=== PATIENT | male | born 1935 | race Caucasian/White ===

== ENCOUNTER 2016-12-23 09:54 | Outpatient (CLI) | payer MEDICARE, OTHER ==
[2016-12-23 12:29] LABS: #Basophils 0.1 thou/uL (0.0-0.2); #Eosinphils 0.1 thou/uL (0.0-0.7); #Lymphocytes 1.6 thou/uL (1.20-3.40); #Monocytes 0.7 thou/uL (0.11-0.59); %Lymphocytes 24.3 % (21.0-51.0); %Monocytes 11.2 % (0.0-10.0); %Neutrophils 61.5 % (42.0-75.0); Hemoglobin 13.9 g/dL (14.0-18.0); Mean Corpuscular HGB CONC 32.4 g/dL (32.0-36.0); Mean Corpuscular Hemoglobin 29.2 pg (27.0-31.0); Mean Corpuscular Volume 90.2 fl (80.0-94.0); Mean Platelet Volume 9.1 fL (7.4-10.4); Platelet Count 209 thou/uL (130-400); RBC Distribution Width 13.8 % (11.5-14.5); Red Blood Cell (RBC) Count 4.74 mill/uL (4.70-6.10); White Blood Cell (WBC) Count 6.4 thou/uL (4.8-10.8)
[2016-12-23 12:52] LABS: ALT (SGPT) 11 U/L (8-55); AST (SGOT) 15 U/L (5-34); Albumin 4.1 g/dL (3.4-4.8); Alkaline Phosphatase 69 U/L (40-150); Anion Gap 16 mmol/L (10-20); BUN (Urea Nitrogen) 14 mg/dL (8.4-25.7); Bilirubin, Direct 0.2 mg/dL (0.1-0.3); Bilirubin, Total 0.4 mg/dL (0.2-1.2); Calc. Creatinine Clearance 0 mL/min (70-130); Calcium 9.2 mg/dL (7.8-10.44); Carbon Dioxide 28 mmol/L (23-31); Cardiac Risk 2.4 (Less than 4.5); Chloride 100 mmol/L (98-107); Cholesterol 168 mg/dl (< 200 Desired); Estimated GFR-MDRD 70; Glucose 86 mg/dL (83-110); HDL Cholesterol 69 mg/dL (>60 Neg Risk); LDL Cholesterol, Calculated 91 mg/dL; Potassium 4.4 mmol/L (3.5-5.1); Protein, Total 6.5 g/dL (5.8-8.1); Sodium 140 mmol/L (136-145); Triglycerides 39 mg/dL (Less than 150)
[2016-12-23 12:58] LABS: Hemoglobin A1c 5.6 % (4.0-6.0)
== END 2016-12-23 09:55 | disposition home or self-care (01) ==
LOC: NAVSJIPCSP 09:54
PROVIDERS: ATTEND Nurse Practitioner Family
DX: E78.5 Hyperlipidemia, unspecified (principal); I15.9 Secondary hypertension, unspecified; G20 Parkinson's disease; M19.90 Unspecified osteoarthritis, unspecified site; R60.0 Localized edema; Z79.899 Other long term (current) drug therapy
CPT/HCPCS: 36415; 80048; 80061; 80076; 83036; 84443; 85025

== ENCOUNTER 2018-07-24 14:41 | Emergency (ER) | payer MEDICARE, OTHER ==
[2018-07-24 14:58] LABS: #Basophils 0.1 thou/uL (0.0-0.2); #Eosinphils 0.1 thou/uL (0.0-0.7); #Lymphocytes 1.5 thou/uL (1.20-3.40); #Monocytes 0.9 thou/uL (0.11-0.59); %Basophils 0.6 % (0.0-1.0); %Eosinophils 0.9 % (0.0-10.0); %Lymphocytes 17.2 % (21.0-51.0); %Neutrophils 70.3 % (42.0-75.0); Hemoglobin 11.6 g/dL (14.0-18.0); Mean Corpuscular Hemoglobin 30.2 pg (27.0-31.0); Mean Corpuscular Volume 97.4 fL (78.0-98.0); Mean Platelet Volume 8.9 fL (7.4-10.4); Platelet Count 239 thou/uL (130-400); RBC Distribution Width 12.3 % (11.5-14.5); Red Blood Cell (RBC) Count 3.84 mill/uL (4.70-6.10); White Blood Cell (WBC) Count 8.6 thou/uL (4.8-10.8)
[2018-07-24 15:15] LABS: ALT (SGPT) Less than 6 U/L (8-55); AST (SGOT) 13 U/L (5-34); Albumin 4.3 g/dL (3.4-4.8); Alkaline Phosphatase 60 U/L (40-150); Anion Gap 16 mmol/L (10-20); BUN (Urea Nitrogen) 36 mg/dL (8.4-25.7); Bilirubin, Total 0.5 mg/dL (0.2-1.2); Calc. Creatinine Clearance 0 mL/min (70-130); Calcium 9.6 mg/dL (7.8-10.44); Carbon Dioxide 26 mmol/L (23-31); Chloride 102 mmol/L (98-107); Estimated GFR-MDRD 50; Globulin 2.7 g/dL (2.4-3.5); Glucose 96 mg/dL (83-110); Sodium 140 mmol/L (136-145)
[2018-07-24 15:19] LABS: PTT 29.4 SEC (22.9-36.1); Prothrombin Time 13.2 SEC (12.0-14.7)
--- NOTE | 2018-07-24 15:39 | CT ---
CT OF BRAIN PERFORMED WITHOUT CONTRAST ENHANCEMENT: 07/24/18 HISTORY: Altered mental status. Confusion for the last few hours. There is generalized ventricular and sulcal prominence. There is no signs of intracerebral hemorrhage or extra-axial fluid collections. Mastoid air cells and visualized sinuses are clear. IMPRESSION: 1. No acute intracranial abnormalities. 2. Findings telephoned to Dr. Willis at 1 503 hours. POS: [facility]
[2018-07-24 15:44] LABS: CK (CPK) 86 U/L (30-200); Lipase 15 U/L (8-78)
[2018-07-24 15:56] LABS: Bilirubin Negative (Negative); Blood, Urine Negative (Negative); Clarity Clear (Clear); Glucose, Urine (Dipstick) Negative (Negative); Leukocyte Negative (Negative); Nitrite Negative (Negative); Protein, Urine (Dipstick) Negative (Neg-Trace); Urobilinogen 0.2 mg/dL (0.2-1.0); pH, Urine 6.5 (5.0-9.0)
--- NOTE | 2018-07-24 16:50 | RAD ---
CHEST ONE VIEW 07/24/18 HISTORY: Stroke alert. Altered mental status. COMPARISON: None. FINDINGS: The lungs are clear. No pneumothorax or effusion. There is a round density within the medial mediast inum likely a large sliding hiatal hernia. Left shoulder reverse arthroplasty is in place in good position. IMPRESSION: Cardiomegaly and large sliding hiatal hernia. POS: [facility]
== END 2018-07-24 17:50 | disposition short-term general hospital (02) ==
LOC: NAV ERS 14:41
DX: R41.82 Altered mental status, unspecified (principal); I10 Essential (primary) hypertension; E78.5 Hyperlipidemia, unspecified; G20 Parkinson's disease; Z87.891 Personal history of nicotine dependence; Z79.899 Other long term (current) drug therapy
CPT/HCPCS: 36416; 70450; 71045; 80053; 81003; 82140; 82550; 83690; 84443; 84484; 85025; 85610; 85730; 93005

== ENCOUNTER 2018-12-28 08:21 | Emergency (ER) | payer MEDICARE, OTHER ==
[2018-12-28] MEDS ORDERED: Acetaminophen 500 MG TAB ONE (09:16)
[2018-12-28 09:25] LABS: #Basophils 0.1 thou/uL (0.0-0.2); #Eosinphils 0.1 thou/uL (0.0-0.7); #Lymphocytes 1.1 thou/uL (1.20-3.40); #Monocytes 1.3 thou/uL (0.11-0.59); #Neutrophils 9.7 thou/uL (1.40-6.50); %Basophils 0.4 % (0.0-1.0); %Eosinophils 0.5 % (0.0-10.0); %Lymphocytes 9.3 % (21.0-51.0); %Neutrophils 78.8 % (42.0-75.0); Hemoglobin 7.3 g/dL (14.0-18.0); Mean Corpuscular HGB CONC 27.9 g/dL (32.0-36.0); Mean Corpuscular Hemoglobin 20.2 pg (27.0-31.0); Mean Corpuscular Volume 72.3 fL (78.0-98.0); Mean Platelet Volume 7.6 fL (7.4-10.4); Platelet Count 364 thou/uL (130-400); Red Blood Cell (RBC) Count 3.62 mill/uL (4.70-6.10); White Blood Cell (WBC) Count 12.3 thou/uL (4.8-10.8)
[2018-12-28 09:38] LABS: Basophilic Stippling SLIGHT = 1-2 cells (100X) (None Seen); Helmet Cells SLIGHT = 2-5 cells (100X) (0-1/hpf); Hypochromia SLIGHT = 6-15 cells (100X) (0-5/hpf); MDiff Complete? YES; Microcytosis MODERATE=15-30 cells (100X) (0-5/hpf); Platelet Morphology Comment Appears Adequate; Poikilocytosis MODERATE=16-30 cells (100X) (0-5/hpf)
[2018-12-28 09:41] LABS: ALT (SGPT) 7 U/L (8-55); AST (SGOT) 23 U/L (5-34); Alkaline Phosphatase 71 U/L (40-150); Anion Gap 16 mmol/L (10-20); BUN (Urea Nitrogen) 13 mg/dL (8.4-25.7); Bilirubin, Total 0.5 mg/dL (0.2-1.2); CK (CPK) 233 U/L (30-200); Calc. Creatinine Clearance 0 mL/min (70-130); Calcium 9.4 mg/dL (7.8-10.44); Carbon Dioxide 27 mmol/L (23-31); Chloride 103 mmol/L (98-107); Estimated GFR-MDRD 71; Globulin 2.9 g/dL (2.4-3.5); Glucose 104 mg/dL (83-110); Lipase 10 U/L (8-78); Potassium 3.6 mmol/L (3.5-5.1); Protein, Total 6.9 g/dL (5.8-8.1); Sodium 142 mmol/L (136-145)
[2018-12-28 09:56] LABS: Bilirubin Negative (Negative); Blood, Urine Trace (Negative); Clarity Clear (Clear); Glucose, Urine (Dipstick) Negative (Negative); Leukocyte Negative (Negative); Nitrite Negative (Negative); Protein, Urine (Dipstick) Trace mg/dL (Neg-Trace)
[2018-12-28 10:07] LABS: RBC/HPF 0-3 HPF (0-3); WBC/HPF None Seen HPF (0-3)
[2018-12-28 10:08] LABS: Bacteria/HPF None Seen HPF (None Seen); Hyaline Casts/LPF 0-3 HYALINE CAST LPF (0-3 Hyaline); Squamous Epithelial 0-3 HPF (0-3)
[2018-12-28] MEDS ORDERED: cefTRIAXone\\ROCEPHIN 1 GM VIAL ONE (10:18)
[2018-12-28] MEDS ORDERED: Levofloxacin 500 mg/D5W 100 ml Premix Bag ONE (10:19)
--- NOTE | 2018-12-28 10:19 | CT ---
Exam: Head CT without contrast HISTORY: Fall. Pain. Generalized weakness. COMPARISON: 07/24/2018 FINDINGS: Hemorrhage: No intraparenchymal hemorrhage or extra-axial hematoma. Brain parenchyma: Cortical hanks-white matter differentiation is preserved. No mass effect or midline shift. Basilar cisterns are patent. Ventricular system: Ventricles and sulci are patent and symmetric. Calvarium: Intact. Sinuses and mastoid air cells: Adequate aeration. IMPRESSION: No acute intracranial process. No intracranial post traumatic sequelae.
--- NOTE | 2018-12-28 10:48 | CT ---
EXAM: CT scan cervical spine without contrast: HISTORY: Injury from a fall COMPARISON: None FINDINGS: No evidence for acute fracture or facet dislocation. There is evidence for a somewhat teardrop oblong left-sided esophageal diverticulum measuring approxi mately 0.8 x 2.3 cm, filled with air. No prevertebral soft tissue swelling. Extensive cervical spondylosis. Approximately 0.4 cm anterolisthesis of C7 on T1. This does not appea r significantly changed from a prior 07/25/2018 CTA NECK. IMPRESSION: No evidence for acute fracture or facet dislocation or other significant acute process. Stable anterolisthesis of C7 on T1. Left-sided esophageal diverticulum filled with air.
[2018-12-28] MEDS ORDERED: Sodium Chloride 0.9% 500 ML ONE (10:56)
--- NOTE | 2018-12-28 11:42 | CT ---
CT OF CHEST AND ABDOMEN AND PELVIS AND THORACIC AND LUMBAR SPINE PERFORMED WITH COTNRAST ENHANCEMENT: HISTORY: Diffuse pain and generalized weakness since patient fell on Friday. FINDINGS: The lungs are clear of any infiltrative process. Tiny effusions are present and there is subsegmenta l atelectatic change seen. There are no rib fractures seen. The thoracic aorta is normal in caliber. There is a large hiatal h ernia seen. No mediastinal or hilar adenopathy. Postoperative changes of the left shoulder are pres ent. CT OF ABDOMEN PERFORMED WITH INTRAVENOUS CONTRAST ENHANCEMENT: The liver, spleen, pancreas, and gallbladder regions appear unremarkable. Right and left adrenal glands and right and left kidneys are normal in size. No free fluid or signs for bowel wall injury. CT OF PELVIS PERFORMED WITH CONTRAST ENHANCEMENT: The prostate is rather markedly enlarged. No pelvic lymphadenopathy is seen. A fat-containing parau mbilical hernia is present. The appendix is unremarkable. Pelvic ring appears intact without signs of fracture. CT OF THORACIC SPINE: No acute injury. CT OF LUMBAR SPINE: No acute findings. IMPRESSION: 1. No acute findings of the chest, abdomen, or pelvis. 2. Large hiatal hernia incidentally seen. POS: [facility]
--- NOTE | 2018-12-28 11:51 | RAD ---
CHEST 1 VIEW: INDICATION: History of fever. COMPARISON: Prior exam dated 07/24/2018. FINDINGS: Heart size remains mildly enlarged. No pleural effusion or pneumothorax is evident. There is stable left total shoulder replacement. There is a moderate hiatal hernia which is stable. Chronic osseou s changes are stable. IMPRESSION: Stable cardiomegaly and hiatal hernia. POS: [facility]
--- NOTE | 2018-12-28 12:20 | RAD ---
RIGHT KNEE 2 VIEWS: Date: 12/28/18 INDICATION: History of fall with right knee pain. COMPARISON: None. FINDINGS: There is severe osteoarthrosis of the right knee. There is moderate to severe joint capsular distenti on. No definite acute fracture is evident. Small interarticular body is suspected within the suprapat ellar pouch measuring 9.7 mm. Additional suspected interarticular body is seen within the region of H offa's fat pad measuring 1.7 cm. There is soft tissue swelling surrounding the right knee. IMPRESSION: 1. Severe osteoarthrosis of the right knee with interarticular bodies. 2. Prominent joint capsular distention. 3. Soft tissue swelling surrounding the right knee. POS: [facility]
== END 2018-12-28 12:40 | disposition short-term general hospital (02) ==
LOC: NAV ERS 08:21
DX: D64.9 Anemia, unspecified (principal); I10 Essential (primary) hypertension; G20 Parkinson's disease; E78.5 Hyperlipidemia, unspecified; Z87.891 Personal history of nicotine dependence; Z79.899 Other long term (current) drug therapy; Z79.82 Long term (current) use of aspirin
CPT/HCPCS: 36430; 51701; 70450; 71045; 71260; 72125; 73560; 74177; 80053; 82274; 82550; 83605; 83690; 84484; 85025; 86850; 86900; 86901; 86920; 87040; 87086; 87149 ×2; 93005; 96365; 96376; 99285; P9016; 36415; 81003; 81015; J0696; J1956; J7050

== ENCOUNTER 2019-01-02 18:10 | Inpatient (IN) | payer MEDICARE, OTHER ==
[2019-01-02] MEDS: cloNIDine 0.1 MG TAB PO PRN (19:10)
[2019-01-02] MEDS ORDERED: traMADol HCl 50 MG TAB PO PRN (19:59)
[2019-01-02] MEDS ORDERED: TYLENOL 650 MG PO PRN (20:02)
[2019-01-02] MEDS ORDERED: Polyethylene Glycol 3350 17 GM Packet PO PRN (20:07)
[2019-01-02] MEDS: clonazePAM 0.5 MG TAB PO SCH (21:20)
[2019-01-02] MEDS: HYDROcodone/Acetaminophen 7.5/325 mg Tablet PO PRN (21:21)
[2019-01-02] MEDS: metroNIDAZOLE 500 MG TAB PO SCH (21:23)
[2019-01-02] MEDS: Atorvastatin Calcium 40 MG TAB PO SCH (21:23)
[2019-01-02] MEDS: Cefdinir 300 MG CAP PO SCH (21:23)
[2019-01-02] MEDS: Pramipexole Di-HCl 0.25 MG TAB PO SCH (21:24)
[2019-01-02] MEDS: Carbidopa/Levodopa CR 50-200 mg Tablet PO SCH (21:24)
[2019-01-03 05:26] LABS: #Eosinphils 0.3 thou/uL (0.0-0.7); #Lymphocytes 1.1 thou/uL (1.20-3.40); #Monocytes 0.9 thou/uL (0.11-0.59); #Neutrophils 8.1 thou/uL (1.40-6.50); %Basophils 0.4 % (0.0-1.0); %Eosinophils 2.4 % (0.0-10.0); %Lymphocytes 10.9 % (21.0-51.0); %Monocytes 8.8 % (0.0-10.0); %Neutrophils 77.5 % (42.0-75.0); Hemoglobin 8.4 g/dL (14.0-18.0); Hypochromia MODERATE=16-30 cells (100X) (0-5/hpf); MDiff Complete? YES; Mean Corpuscular HGB CONC 29.1 g/dL (32.0-36.0); Mean Corpuscular Hemoglobin 21.5 pg (27.0-31.0); Mean Corpuscular Volume 74.1 fL (78.0-98.0); Mean Platelet Volume 7.4 fL (7.4-10.4); Microcytosis MODERATE=15-30 cells (100X) (0-5/hpf); Platelet Count 398 thou/uL (130-400); Platelet Morphology Comment Appears Adequate; RBC Distribution Width 20.6 % (11.5-14.5); Red Blood Cell (RBC) Count 3.88 mill/uL (4.70-6.10); Target Cells SLIGHT = 2-5 cells (100X) (0-1/hpf); White Blood Cell (WBC) Count 10.4 thou/uL (4.8-10.8)
[2019-01-03 05:31] LABS: Anion Gap 13 mmol/L (10-20); BUN (Urea Nitrogen) 13 mg/dL (8.4-25.7); Calc. Creatinine Clearance 79 mL/min (70-130); Calcium 8.7 mg/dL (7.8-10.44); Carbon Dioxide 31 mmol/L (23-31); Chloride 99 mmol/L (98-107); Estimated GFR-MDRD Greater than 90; Glucose 113 mg/dL (83-110); Potassium 3.8 mmol/L (3.5-5.1); Sodium 139 mmol/L (136-145)
[2019-01-03] MEDS: cloNIDine 0.1 MG TAB PO PRN (07:14)
[2019-01-03] MEDS: Ferrous Sulfate 325 MG TAB PO SCH (07:15)
[2019-01-03] MEDS: Carbidopa/Levodopa CR 50-200 mg Tablet PO SCH ×3 (08:56→21:26)
[2019-01-03] MEDS: Cefdinir 300 MG CAP PO SCH ×2 (08:56→21:20)
[2019-01-03] MEDS: Furosemide 40 MG TAB PO SCH (08:56)
[2019-01-03] MEDS: metroNIDAZOLE 500 MG TAB PO SCH ×3 (08:56→21:22)
[2019-01-03] MEDS: Finasteride 5 MG TAB PO SCH (08:56)
[2019-01-03] MEDS: Pramipexole Di-HCl 0.25 MG TAB PO SCH ×2 (08:57→21:24)
--- NOTE | 2019-01-03 14:48 | HP ---
CHIEF COMPLAINT: Possible aspiration pneumonitis and anemia, here for therapy. BRIEF HISTORY: This is a pleasant 83-year-old male, who is a patient of my partner, Dr. Chuy Seaman, who presented to the hospital in [place] with a fall and hemoglobin of 7.3. He required 2 units of blood. He underwent EGD, which did not show any active source of bleeding. He did have an episode of PACs and workup did show possible aspiration pneumonia, and he was started on IV metronidazole and cefepime. He was negative for any PE. He has been switched over to oral antibiotics and he was felt to be a candidate for rehabilitation, so transferred here. The patient is resting in bed and is groggy, but arousable. 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 He denies any chest pain or shortness of breath. PAST MEDICAL HISTORY: 1. Parkinson disease. 2. Restless legs syndrome. 3. Dyslipidemia. 4. Diastolic dysfunction. 5. Hypertension. 6. Anemia, requiring blood transfusion. 7. Osteoarthritis. PAST SURGICAL HISTORY: 1. Left shoulder surgery. 2. Cataract extraction. 3. Throat surgery. FAMILY HISTORY: Noncontributory. PSYCHOSOCIAL HISTORY: Denies any tobacco abuse. He drinks a couple of beers daily. Denies any recreational drug use. He was ambulating with the help of a walker. ALLERGIES: NO KNOWN DRUG ALLERGIES. MEDICATIONS: He has been transferred here on the following medications; 1. [place] 7.5 one tablet q.6 hours p.r.n. 2. DuoNeb q.6 hours p.r.n. 3. Lipitor 40 mg daily. 4. Sinemet CR 50/200 one tablet b.i.d. 5. Omnicef 300 mg b.i.d. 6. Klonopin 1.5 mg daily at bedtime. 7. Iron sulfate 325 daily. 8. Proscar 5 mg daily. 9. Lasix 40 mg daily. 10. Flagyl 500 mg t.i.d. 11. Protonix 40 mg daily. 12. Mirapex 0.5 mg b.i.d. 13. Omnicef 300 mg b.i.d. REVIEW OF SYSTEMS: CARDIOVASCULAR SYSTEM: Denies any chest pain, shortness of breath, palpitations, PND, orthopnea, or pedal edema. RESPIRATORY SYSTEM: Occasional cough. Denies any pleuritic type chest pain. Denies any hemoptysis. GASTROINTESTINAL SYSTEM: Denies any nausea, vomiting, diarrhea, constipation, hematemesis, melena, or hematochezia. GENITOURINARY SYSTEM: Denies any frequency, urgency, dysuria, or hematuria. CENTRAL NERVOUS SYSTEM: Generalized weakness. Denies any focal numbness or weakness. He did have a fall prior to admission. No fainting spells. HEENT: He is slightly hard of hearing. Denies any difficulty with swallowing. Vision, denies any change in vision. SKIN: Denies any rash. PHYSICAL EXAMINATION: GENERAL: This is a pleasant 83-year-old male, who is resting comfortably in bed and denies any concerns. His family is with him. He is awake and responsive. VITAL SIGNS: He is afebrile, heart rate 72, respirations 21, oxygen saturation 97%. Blood pressure after getting his medications was 121/66, before it was 191/87. HEENT: Normocephalic and atraumatic. Pupils are equally reactive to light and accommodation. NECK: No JVD, thyromegaly, cervical lymphadenopathy, throat exudates, or carotid bruits. CARDIOVASCULAR SYSTEM: S1 and S2 plus. Rate and rhythm regular. RESPIRATORY SYSTEM: Normal vesicular breath sounds with decreased air entry at the bases. Occasional rhonchi. ABDOMEN: Soft and nontender. Bowel sounds heard in all quadrants. EXTREMITIES: Without cyanosis or clubbing. Trace edema. Peripheral pulses are palpable. CENTRAL NERVOUS SYSTEM: Awake and responsive. Cranial nerves 2 through 12 grossly intact. Generalized weakness. LABORATORY DATA: Laboratory values done this morning shows a white count of 10.4, H and H of 8.4 and 28.7 with microcytosis. Sodium 139, potassium 3.8, BUN and creatinine are 13 and 0.81, blood sugar is 113. IMPRESSION: 1. Resolving aspiration pneumonia. 2. Anemia, much improved post blood transfusion with negative esophagogastroduodenoscopy. 3. Parkinson disease. 4. Hypertension. 5. Dyslipidemia. 6. Restless legs syndrome. 7. Deconditioning. PLAN: 1. Continue current medications. 2. Heart healthy diet. 3. Iron sulfate. 4. Monitor for any signs of bleeding. 5. Monitor respiratory status. 6. DVT prophylaxis with PlexiPulses. 7. Decubitus precautions. 8. Stress ulcer prophylaxis. 9. Routine laboratory values. 10. Dr. Chuy Seaman will assume care at 9 p.m. [facility]. Discussed with the patient and family in detail. All questions answered. Job ID: [id number]
[2019-01-03] MEDS: Atorvastatin Calcium 40 MG TAB PO SCH (21:20)
[2019-01-03] MEDS: clonazePAM 0.5 MG TAB PO SCH (21:22)
[2019-01-03] MEDS: HYDROcodone/Acetaminophen 7.5/325 mg Tablet PO PRN (21:26)
[2019-01-04] MEDS: Cefdinir 300 MG CAP PO SCH ×2 (08:59→21:09)
[2019-01-04] MEDS: Furosemide 40 MG TAB PO SCH (09:00)
[2019-01-04] MEDS: Ferrous Sulfate 325 MG TAB PO SCH (09:00)
[2019-01-04] MEDS: Finasteride 5 MG TAB PO SCH (09:01)
[2019-01-04] MEDS: Carbidopa/Levodopa CR 50-200 mg Tablet PO SCH ×2 (09:01→21:12)
[2019-01-04] MEDS: metroNIDAZOLE 500 MG TAB PO SCH ×3 (09:01→21:10)
[2019-01-04] MEDS: Pramipexole Di-HCl 0.25 MG TAB PO SCH ×2 (09:02→21:11)
--- NOTE | 2019-01-04 10:20 | PRG ---
DATE OF SERVICE: 01/04/2019 Mr. Tubbs is a very pleasant 83-year-old white male, who presented to the emergency room at [place] very anemic with a hemoglobin of 7.3. He was given 2 units of packed red blood cells. He was seen by GI and had an EGD done which did not show any active bleeding. He was also noted to have a high white count and had possible aspiration pneumonia, was started on IV metronidazole and cefepime. Negative for pulmonary embolism. Switched over to oral antibiotics and was so weak that they felt that they would transfer him to [facility], so that he can get some physical therapy and occupational therapy to increase his strength and stamina and make him more independent. SUBJECTIVE: The patient states he is doing well today and has no concerns or complaints. Physical Therapy has seen him and he states he did stand up and walk a few feet this morning. He does complain of some right thigh pain that seems like it is more musculoskeletal. States that has been going off and on for the last month. He does not have any trauma to that area. OBJECTIVE: VITAL SIGNS: Today reveal blood pressure 180/82 and last night was 158/75, and yesterday morning 121/66. Pulse 66 to 70, respirations 18 to 20, O2 saturation 96% to 97% on room air, T-max 97.6. GENERAL: This is a well-developed, well-nourished, slightly obese white male, in no apparent distress at this time. HEENT: Reveals normocephalic and nontraumatic cranium. Pupils are equal, round, and reactive. Extraocular movements are intact. Nose and throat are slightly dry, but clear. NECK: Supple without masses, nodes, or bruits. CHEST: Clear to auscultation. No rales, no rhonchi, no wheezes are heard. Breath sounds are distant. The patient is not coughing this morning. HEART: Reveals a regular rate and rhythm without murmurs, gallops, or rubs. ABDOMEN: Soft and nontender without organomegaly. Normal bowel sounds are heard in all 4 quadrants. GENITOURINARY: Deferred. EXTREMITIES: Reveal no clubbing or cyanosis, with trace edema. PSYCHIATRIC: The patient is alert and oriented to person and place, but not the time. MUSCULOSKELETAL: Musculoskeletal crook, he has generalized weakness. IMPRESSION: 1. Resolving aspiration pneumonia. 2. Anemia post transfusion x2. 3. Negative EGD. 4. Parkinson disease. 5. Hypertension. 6. Hyperlipidemia. 7. Restless legs syndrome. 8. Deconditioning with generalized weakness. PLAN: 1. Continue present medications. 2. Continue to monitor the patient's anemia for signs of bleeding. 3. Monitor the patient's respiratory status. 4. DVT prophylaxis with plexi-pulses. 5. Decubitus precautions. 6. Stress ulcer prophylaxis. 7. Continue to monitor the patient's lab values. 8. Physical therapy and occupational therapy. Job ID: [id number]
[2019-01-04] MEDS: HYDROcodone/Acetaminophen 7.5/325 mg Tablet PO PRN (14:40)
[2019-01-04] MEDS: clonazePAM 0.5 MG TAB PO SCH (21:10)
[2019-01-04] MEDS: Atorvastatin Calcium 40 MG TAB PO SCH (21:12)
[2019-01-05] MEDS: Cefdinir 300 MG CAP PO SCH ×2 (08:55→21:29)
[2019-01-05] MEDS: Carbidopa/Levodopa CR 50-200 mg Tablet PO SCH ×2 (08:55→21:28)
[2019-01-05] MEDS: Ferrous Sulfate 325 MG TAB PO SCH (08:55)
[2019-01-05] MEDS: Furosemide 40 MG TAB PO SCH (08:56)
[2019-01-05] MEDS: metroNIDAZOLE 500 MG TAB PO SCH ×3 (08:56→21:29)
[2019-01-05] MEDS: Pramipexole Di-HCl 0.25 MG TAB PO SCH ×2 (08:56→21:27)
[2019-01-05] MEDS: Finasteride 5 MG TAB PO SCH (08:56)
[2019-01-05] MEDS: HYDROcodone/Acetaminophen 7.5/325 mg Tablet PO PRN (15:40)
--- NOTE | 2019-01-05 19:29 | PRG ---
DATE OF SERVICE: 01/05/2019 SUBJECTIVE: Mr. Tubbs is an 83-year-old white male, who presented to the emergency room with anemia. His hemoglobin was found to be 7.3. He had to be given 2 units of packed red blood cells. He was seen by a GI doctor, EGD was done, did not show any active bleeding. It is also noted to have a leukocytosis, thought to have a possible aspiration pneumonia. He was started on IV metronidazole and cefepime. His scan was negative for pulmonary embolus. He was switched over to oral antibiotics and then transferred to [facility] to get some Physical Therapy, Occupational Therapy to increase his strength and stamina. SUBJECTIVE: The patient states he is doing well, but he is worried about his knees because they hurt a lot when he stands up and walks. He is asking whether he can have knee surgery done, but he states that someone in the past told him that he was too sick for knee surgery. He thinks that he has seen Dr. Devang Acuña in the past. OBJECTIVE: VITAL SIGNS: Today reveal blood pressure 162/78, pulse 66 to 74, respirations 18 to 20, O2 saturation 95% to 98% on room air. T-max 98.0. GENERAL: This is a well-developed, well-nourished 83-year-old white male, in no apparent distress at this time. HEENT: Normocephalic and nontraumatic cranium. Pupils equal, round, and reactive. Extraocular movements are intact. Nose and throat are dry. KIM: Supple without masses, nodes, or bruits. CHEST: Clear. No rales, no rhonchi, no wheezes, and no cough is heard. Breath sounds are noted to be different. HEART: Reveals a regular rate and rhythm without murmurs, gallops, or rubs. ABDOMEN: slightly obese, soft, nontender without organomegaly. Normal bowel sounds are noted in all 4 quadrants. No rebound or guarding is noted. : Deferred. EXTREMITIES: Reveal no clubbing or cyanosis, with still some trace edema. The patient is alert and orient to person, place. MUSCULOSKELETAL: He has generalized weakness. Arthritis crook, he has pain in both of his knees. IMPRESSION: 1. Resolving aspiration pneumonia. 2. Anemia, status post transfusion x2 units. 3. Negative EGD. 4. Parkinson's. 5. Hypertension. 6. Hyperlipidemia. 7. Restless legs syndrome. 8. Generalized weakness with deconditioning. PLAN: 1. Continue present antibiotics. 2. Continue to monitor the patient's anemia for signs and symptoms of bleeding. 3. Monitor the patient's respiratory status. 4. DVT prophylaxis with PlexiPulse. 5. Decubitus precautions. 6. Stress ulcer prophylaxis. 7. Continue monitor the patient's lab values. 8. Physical therapy and occupational therapy. Job ID: [id number]
[2019-01-05] MEDS: clonazePAM 0.5 MG TAB PO SCH (21:27)
[2019-01-05] MEDS: Atorvastatin Calcium 40 MG TAB PO SCH (21:28)
[2019-01-06] MEDS: Cefdinir 300 MG CAP PO SCH (08:50)
[2019-01-06] MEDS: metroNIDAZOLE 500 MG TAB PO SCH ×3 (08:50→21:52)
[2019-01-06] MEDS: Carbidopa/Levodopa CR 50-200 mg Tablet PO SCH ×2 (08:50→21:53)
[2019-01-06] MEDS: Ferrous Sulfate 325 MG TAB PO SCH (08:50)
[2019-01-06] MEDS: Furosemide 40 MG TAB PO SCH (08:51)
[2019-01-06] MEDS: Finasteride 5 MG TAB PO SCH (08:51)
[2019-01-06] MEDS: Pramipexole Di-HCl 0.25 MG TAB PO SCH (08:52)
[2019-01-06] MEDS ORDERED: TYLENOL 650 MG PO PRN (11:56)
[2019-01-06] MEDS ORDERED: cloNIDine 0.1 MG TAB PO PRN (11:56)
--- NOTE | 2019-01-06 14:17 | PRG ---
DATE OF SERVICE: 01/06/2019 SUBJECTIVE: Mr. Tubbs is a very pleasant 83-year-old white male, who presented to emergency room with anemia. He was found to have a hemoglobin of 7.3. On the hospital, he was given 2 units of packed red blood cells and seen by Gastroenterology. EGD did not show any active bleeding. He was noted to have a leukocytosis and thought to have a possible aspiration pneumonia. Because of aspiration pneumonia, he was started on Flagyl and cefepime. Scan was negative for pulmonary embolism. He was switched over to oral antibiotics and transferred to [facility]. He is here mainly for inpatient physical therapy, occupational therapy, and increase his strength, stamina, and nutrition. The patient states he had a good day yesterday. 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 He is not worried about his knees because he knows he is going to see Dr. Guan on January 20. At that time, he will get steroids in both of his knees and a gel in one of his knees. Dr. Guan is his primary orthopedist at this time. OBJECTIVE: VITAL SIGNS: Reveal blood pressure 149/85, pulse 73 to 85, respirations 18 to 20, O2 saturation 96% on room air, T-max 97.9. GENERAL: This is a well-developed, well-nourished, very pleasant, slightly obese white male, in no apparent distress at this time. He is much more awake and alert today. HEENT: Reveals normocephalic and nontraumatic cranium. Pupils are equally round and reactive. Extraocular movements are intact. Nose and throat are moist today. NECK: Supple without masses, nodes, or bruits. CHEST: Clear to auscultation. No rales, rhonchi, wheezes, or cough are heard. Normal breath sounds are noted, but they are somewhat distant. HEART: Reveals a regular rate and rhythm. No murmurs, gallops, or rubs are noted. ABDOMEN: Soft, nontender without organomegaly. Normal bowel sounds are noted in all 4 quadrants. No rebound or guarding is noted. : Deferred. EXTREMITIES: Reveal no clubbing or cyanosis with continued trace edema in his ankles. NEUROLOGIC: The patient is oriented to person and place, but not time. MUSCULOSKELETAL: Musculoskeletal crook, the patient has generalized weakness. He has a lot of arthritis in both his knees. LABORATORY DATA: No labs were done. IMPRESSION: 1. Generalized weakness with deconditioning. 2. Anemia, status post transfusion x2 units. 3. Negative EGD. 4. Parkinson disease. 5. Hypertension. 6. Hyperlipidemia. 7. Restless legs syndrome. 8. Resolving aspiration pneumonia. PLAN: 1. Continue to monitor the patient for anemia. 2. Continue present Parkinson's medication. 3. Continue to monitor the patient's blood pressure closely and adjust medications as needed. 4. Continue restless leg medications. 5. Continue present medications. 6. DVT prophylaxis with PlexiPulse. 7. Decubitus precautions. 8. Stress ulcer prophylaxis. 9. Continue to monitor the patient's lab values. 10. Continue to monitor the patient's respiratory status. 11. Continue to monitor the patient for anemia. 12. Physical therapy and occupational therapy. Job ID: [id number]
[2019-01-06] MEDS ORDERED: clonazePAM 0.5 MG TAB PO SCH (21:00)
[2019-01-06] MEDS ORDERED: Cefdinir 300 MG CAP PO SCH (21:00)
[2019-01-06] MEDS ORDERED: Pramipexole Di-HCl 0.25 MG TAB PO SCH (21:00)
[2019-01-06] MEDS: Loratadine 10 MG TAB PO PRN (21:51)
[2019-01-06] MEDS: Atorvastatin Calcium 40 MG TAB PO SCH (21:52)
[2019-01-07 06:10] LABS: ALT (SGPT) Less than 6 U/L (8-55); AST (SGOT) 22 U/L (5-34); Albumin 3.3 g/dL (3.4-4.8); Alkaline Phosphatase 61 U/L (40-150); Anion Gap 13 mmol/L (10-20); BUN (Urea Nitrogen) 15 mg/dL (8.4-25.7); Bilirubin, Total 0.3 mg/dL (0.2-1.2); Calc. Creatinine Clearance 69 mL/min (70-130); Calcium 9.2 mg/dL (7.8-10.44); Carbon Dioxide 29 mmol/L (23-31); Chloride 100 mmol/L (98-107); Estimated GFR-MDRD 79; Globulin 2.9 g/dL (2.4-3.5); Glucose 96 mg/dL (83-110); Potassium 3.6 mmol/L (3.5-5.1); Protein, Total 6.2 g/dL (5.8-8.1); Sodium 138 mmol/L (136-145)
[2019-01-07 06:23] LABS: #Basophils 0.1 thou/uL (0.0-0.2); #Eosinphils 0.3 thou/uL (0.0-0.7); #Lymphocytes 2.4 thou/uL (1.20-3.40); #Monocytes 0.9 thou/uL (0.11-0.59); #Neutrophils 5.8 thou/uL (1.40-6.50); %Basophils 0.8 % (0.0-1.0); %Eosinophils 2.7 % (0.0-10.0); %Lymphocytes 25.2 % (21.0-51.0); %Monocytes 9.6 % (0.0-10.0); %Neutrophils 61.7 % (42.0-75.0); Hemoglobin 9.1 g/dL (14.0-18.0); Mean Corpuscular HGB CONC 28.7 g/dL (32.0-36.0); Mean Corpuscular Hemoglobin 21.2 pg (27.0-31.0); Mean Platelet Volume 6.5 fL (7.4-10.4); Platelet Count 527 thou/uL (130-400); RBC Distribution Width 21.6 % (11.5-14.5); Red Blood Cell (RBC) Count 4.26 mill/uL (4.70-6.10); White Blood Cell (WBC) Count 9.5 thou/uL (4.8-10.8)
[2019-01-07] MEDS ORDERED: Ferrous Sulfate 325 MG TAB PO SCH ×2 (08:00→08:30)
[2019-01-07] MEDS ORDERED: Finasteride 5 MG TAB PO SCH ×2 (08:30→09:00)
[2019-01-07] MEDS ORDERED: Furosemide 40 MG TAB PO SCH ×2 (08:30→09:00)
[2019-01-07] MEDS ORDERED: Pramipexole Di-HCl 0.25 MG TAB PO SCH (08:30)
[2019-01-07] MEDS ORDERED: Cefdinir 300 MG CAP PO SCH (08:30)
[2019-01-07] MEDS ORDERED: metroNIDAZOLE 500 MG TAB PO SCH (08:30)
[2019-01-07] MEDS: metroNIDAZOLE 500 MG TAB PO SCH ×3 (08:36→21:21)
[2019-01-07] MEDS: Ferrous Sulfate 325 MG TAB PO SCH (08:36)
[2019-01-07] MEDS: Cefdinir 300 MG CAP PO SCH ×2 (08:37→21:20)
[2019-01-07] MEDS: Finasteride 5 MG TAB PO SCH (08:37)
[2019-01-07] MEDS: Pramipexole Di-HCl 0.25 MG TAB PO SCH ×2 (08:37→21:20)
[2019-01-07] MEDS: Furosemide 40 MG TAB PO SCH (08:37)
[2019-01-07] MEDS: Carbidopa/Levodopa CR 50-200 mg Tablet PO SCH ×2 (08:38→21:21)
[2019-01-07] MEDS: HYDROcodone/Acetaminophen 7.5/325 mg Tablet PO PRN (10:05)
[2019-01-07] MEDS: clonazePAM 1 MG TAB PO SCH (21:21)
[2019-01-07] MEDS: Atorvastatin Calcium 40 MG TAB PO SCH (21:21)
[2019-01-08] MEDS: HYDROcodone/Acetaminophen 7.5/325 mg Tablet PO PRN (07:50)
[2019-01-08] MEDS: Ferrous Sulfate 325 MG TAB PO SCH (08:21)
[2019-01-08] MEDS: Cefdinir 300 MG CAP PO SCH ×2 (08:21→21:16)
[2019-01-08] MEDS: Pramipexole Di-HCl 0.25 MG TAB PO SCH ×2 (08:21→21:16)
[2019-01-08] MEDS: Carbidopa/Levodopa CR 50-200 mg Tablet PO SCH ×2 (08:22→21:16)
[2019-01-08] MEDS: metroNIDAZOLE 500 MG TAB PO SCH ×3 (08:22→21:17)
[2019-01-08] MEDS: Furosemide 40 MG TAB PO SCH (08:22)
[2019-01-08] MEDS: Finasteride 5 MG TAB PO SCH (08:23)
--- NOTE | 2019-01-08 13:00 | PRG ---
DATE OF SERVICE: 01/08/2019 SUBJECTIVE: Mr. Tubbs is a well-developed, well-nourished, very pleasant, 83-year-old white male, who presented to the emergency room with weakness. He was found to be extremely anemic with a hemoglobin of 7.3 and received 2 units of packed red blood cells. He was seen by GI and EGD did not show any active bleeding. Thought to have possible aspiration pneumonia because of leukocytosis. He was started on Flagyl and cefepime. Scan was negative for pulmonary embolus and he was switched over to oral antibiotics. Transferred to [facility], here for PT and OT and for to increase his nutrition. OBJECTIVE: VITAL SIGNS: Revealed blood pressure 168/73, pulse 74 to 83, respirations 18 to 20, O2 saturation 96% to 98%, and T-max 98.1. GENERAL: This is a well-developed, well-nourished, very pleasant, 83-year-old white male, in no apparent distress at this time. HEENT: Reveals normocephalic and nontraumatic cranium. Pupils are equal, round, and reactive. Extraocular movements are intact. Nose and throat are slightly dry, but clear. NECK: Supple without masses, nodes, or bruits. CHEST: Clear to auscultation, but the breath sounds are distant. No rales, rhonchi, wheezes, or cough is heard. HEART: Reveals a regular rate and rhythm without murmurs, gallops or rubs. ABDOMEN: Soft and nontender. The patient presently eaten a little bit of [place] food and has a fair appetite. Normal bowel sounds are heard in all 4 quadrants. No rebound or guarding is noted. : Deferred. EXTREMITIES: Revealed no clubbing or cyanosis with continued trace edema. NEUROLOGIC: The patient is oriented to person and place, but not time. MUSCULOSKELETAL: The patient is weak, but slowly getting better. He did walk 8 feet, then 60 feet, then 45 feet, then 45 feet. ASSESSMENT: 1. Anemia, status post transfusion x2 units, stable. 2. Negative esophagogastroduodenoscopy. 3. Parkinson disease. 4. Hypertension. 5. Hyperlipidemia. 6. Restless legs syndrome. 7. Resolving aspiration pneumonia. 8. Generalized weakness with deconditioning. PLAN: 1. Continue to monitor the patient's anemia. 2. Continue to monitor the patient's blood pressure closely, adjust medications as needed. 3. Continue restless legs medications. 4. Continue present Parkinson medications at present dose. 5. DVT prophylaxis with PlexiPulse. 6. Decubitus precautions. 7. Stress ulcer prophylaxis. 8. Continue to monitor the patient's labs. 9. Continue to monitor the patient's respiratory status. 10. Physical therapy and occupational therapy. Job ID: [id number]
[2019-01-08] MEDS: traMADol HCl 50 MG TAB PO PRN (16:16)
[2019-01-08] MEDS: Atorvastatin Calcium 40 MG TAB PO SCH (21:16)
[2019-01-08] MEDS: clonazePAM 1 MG TAB PO SCH (21:16)
[2019-01-09] MEDS: Ferrous Sulfate 325 MG TAB PO SCH (08:12)
[2019-01-09] MEDS: Pramipexole Di-HCl 0.25 MG TAB PO SCH ×2 (09:12→20:13)
[2019-01-09] MEDS: metroNIDAZOLE 500 MG TAB PO SCH ×3 (09:12→20:14)
[2019-01-09] MEDS: Furosemide 40 MG TAB PO SCH (09:12)
[2019-01-09] MEDS: Finasteride 5 MG TAB PO SCH (09:12)
[2019-01-09] MEDS: Carbidopa/Levodopa CR 50-200 mg Tablet PO SCH ×2 (09:12→20:14)
[2019-01-09] MEDS: Cefdinir 300 MG CAP PO SCH ×2 (09:13→20:10)
[2019-01-09] MEDS: HYDROcodone/Acetaminophen 7.5/325 mg Tablet PO PRN ×2 (09:15→20:14)
--- NOTE | 2019-01-09 09:55 | PRG ---
DATE OF SERVICE: 01/09/2019 SUBJECTIVE: The patient is a pleasant 83-year-old white male with a history of recent finding of severe anemia with unknown etiology with a negative EGD with only finding of possible aspiration pneumonia with no mention of colonoscopy. He has required transfusion and has been stable since that time and is also on IV cefepime and Flagyl for possible aspiration pneumonia and appears to be much stronger and has been switched to oral Omnicef and appears to be continuing to improve as well as oral Flagyl. He is eating well and is in no distress with no cough or shortness of breath. OBJECTIVE: LUNGS: With a few diffuse rhonchi. No rales or wheezes. CARDIAC: Showed regular rhythm. ABDOMEN: Soft and nontender. SKIN AND EXTREMITIES: Displayed no edema, clubbing, or cyanosis. NEUROLOGICAL: Shows mild cogwheel rigidity and some resting tremor. VITAL SIGNS: Temperature is 97.7, pulse 79, respirations 20, O2 sats 94% on room air, and blood pressure is 170/79. ASSESSMENT: 1. Resolving aspiration pneumonia, on oral antibiotics. 2. New onset of anemia of unknown etiology, status post transfusion, being monitored closely for recurrence and no evidence for recurrent bleeding. 3. Parkinson disease, stable. 4. Hypertension, controlled to goal. PLAN: 1. Continue PT/OT. 2. Continue to monitor CBC for recurrent anemia. 3. Continue to monitor for recurrent gastrointestinal bleed. 4. Continue stress ulcer prophylaxis. 5. Continue Parkinson medications. Job ID: [id number]
[2019-01-09] MEDS: clonazePAM 1 MG TAB PO SCH (20:10)
[2019-01-09] MEDS: Atorvastatin Calcium 40 MG TAB PO SCH (20:14)
[2019-01-10] MEDS: HYDROcodone/Acetaminophen 7.5/325 mg Tablet PO PRN ×2 (08:44→17:18)
[2019-01-10] MEDS: Cefdinir 300 MG CAP PO SCH ×2 (08:46→20:35)
[2019-01-10] MEDS: Furosemide 40 MG TAB PO SCH (08:46)
[2019-01-10] MEDS: Carbidopa/Levodopa CR 50-200 mg Tablet PO SCH ×2 (08:46→20:35)
[2019-01-10] MEDS: Finasteride 5 MG TAB PO SCH (08:46)
[2019-01-10] MEDS: metroNIDAZOLE 500 MG TAB PO SCH ×3 (08:47→20:35)
[2019-01-10] MEDS: Ferrous Sulfate 325 MG TAB PO SCH (08:47)
[2019-01-10] MEDS: Pramipexole Di-HCl 0.25 MG TAB PO SCH ×2 (08:47→20:35)
--- NOTE | 2019-01-10 20:08 | PRG ---
DATE OF SERVICE: 01/10/[address] López Lagos. SUBJECTIVE: The patient feels well, lying in bed, but has not had any therapy this week and has been resting, felt fairly stable. No shortness of breath. He has been tolerating his oral antibiotics for his aspiration pneumonia and is eating well. OBJECTIVE: VITAL SIGNS: Shows blood pressure 119/56, temperature is 97, pulse 73, respirations 20, and O2 sats 96% on room air. LUNGS: Clear. CARDIAC: Examination showed regular rhythm. ABDOMEN: Soft and nontender. SKIN/EXTREMITIES: Show no edema, clubbing, or cyanosis. NEUROLOGICAL: Intact. ASSESSMENT: 1. Resolving aspiration pneumonia on oral antibiotics. 2. Persistent anemia. No evidence of gastrointestinal bleeding. 3. Stable Parkinson's disease. 4. Hypertension, controlled to goal. PLAN: 1. Continue PT, OT. 2. Repeat CBC and basic metabolic profile in the a.m. 3. Continue stress ulcer prophylaxis. 4. Continue Parkinson's medicines. Job ID: [id number]
[2019-01-10] MEDS: clonazePAM 1 MG TAB PO SCH (20:35)
[2019-01-10] MEDS: Polyethylene Glycol 3350 17 GM Packet PO PRN (20:35)
[2019-01-10] MEDS: Atorvastatin Calcium 40 MG TAB PO SCH (20:35)
[2019-01-11] MEDS: HYDROcodone/Acetaminophen 7.5/325 mg Tablet PO PRN (05:14)
[2019-01-11 05:51] LABS: #Basophils 0.1 thou/uL (0.0-0.2); #Eosinphils 0.2 thou/uL (0.0-0.7); #Lymphocytes 1.8 thou/uL (1.20-3.40); #Monocytes 1.3 thou/uL (0.11-0.59); #Neutrophils 7.9 thou/uL (1.40-6.50); %Basophils 1.3 % (0.0-1.0); %Eosinophils 1.7 % (0.0-10.0); %Lymphocytes 15.6 % (21.0-51.0); %Monocytes 11.3 % (0.0-10.0); %Neutrophils 70.1 % (42.0-75.0); Hemoglobin 9.3 g/dL (14.0-18.0); Hypochromia MODERATE=16-30 cells (100X) (0-5/hpf); MDiff Complete? YES; Mean Corpuscular HGB CONC 28.6 g/dL (32.0-36.0); Mean Corpuscular Hemoglobin 21.4 pg (27.0-31.0); Mean Corpuscular Volume 74.8 fL (78.0-98.0); Mean Platelet Volume 7.3 fL (7.4-10.4); Microcytosis SLIGHT = 6-15 cells (100X) (0-5/hpf); Ovalocytes SLIGHT = 2-5 cells (100X) (0-1/hpf); Platelet Count 580 thou/uL (130-400); Platelet Morphology Comment Appears Increased; RBC Distribution Width 22.1 % (11.5-14.5); Red Blood Cell (RBC) Count 4.34 mill/uL (4.70-6.10); White Blood Cell (WBC) Count 11.3 thou/uL (4.8-10.8)
[2019-01-11 05:55] LABS: Anion Gap 13 mmol/L (10-20); BUN (Urea Nitrogen) 19 mg/dL (8.4-25.7); Calc. Creatinine Clearance 69 mL/min (70-130); Calcium 9.2 mg/dL (7.8-10.44); Carbon Dioxide 28 mmol/L (23-31); Chloride 100 mmol/L (98-107); Estimated GFR-MDRD 77; Glucose 97 mg/dL (83-110); Potassium 3.8 mmol/L (3.5-5.1); Sodium 137 mmol/L (136-145)
[2019-01-11] MEDS: Polyethylene Glycol 3350 17 GM Packet PO PRN (08:16)
[2019-01-11] MEDS: metroNIDAZOLE 500 MG TAB PO SCH ×2 (08:17→15:20)
[2019-01-11] MEDS: Finasteride 5 MG TAB PO SCH (08:17)
[2019-01-11] MEDS: Cefdinir 300 MG CAP PO SCH (08:17)
[2019-01-11] MEDS: traMADol HCl 50 MG TAB PO PRN (08:17)
[2019-01-11] MEDS: Ferrous Sulfate 325 MG TAB PO SCH (08:17)
[2019-01-11] MEDS: Pramipexole Di-HCl 0.25 MG TAB PO SCH ×2 (08:17→21:39)
[2019-01-11] MEDS: Loratadine 10 MG TAB PO PRN (08:17)
[2019-01-11] MEDS: Furosemide 40 MG TAB PO SCH (08:18)
[2019-01-11] MEDS: Carbidopa/Levodopa CR 50-200 mg Tablet PO SCH ×2 (08:18→21:39)
--- NOTE | 2019-01-11 21:37 | PRG ---
DATE OF SERVICE: 01/11/2019 SUBJECTIVE: Mr. Tubbs is a very pleasant 83-year-old white male who presented to the emergency room with weakness. He was found to be extremely anemic with a hemoglobin of 7.3. He ended up having to have 2 units of packed red blood cells. He was seen by GI and his EGD did not show any active bleeding. He was also found to have leukocytosis, thought to have possible aspiration pneumonia. He was placed on Flagyl and cefepime. Scan was negative for pulmonary embolism, switched over to oral antibiotics and transferred to [facility] for PT and OT and decrease his nutrition. OBJECTIVE: VITAL SIGNS: Reveal blood pressure this morning 149/70, pulse 80 to 88, respirations 20 to 24, room air oxygen saturation 94% to 96% on room air. T-max is 97.4. PHYSICAL EXAMINATION: GENERAL: This is a well-developed, well-nourished, slightly obese white male, in no apparent distress at this time. HEENT: Normocephalic and nontraumatic cranium. Pupils are equal, round, and reactive. Extraocular movements are intact. Nose and throat are slightly dry. NECK: Supple without masses, nodes, or bruits. CHEST: Clear to auscultation. No rales, no rhonchi. No wheezes are heard. HEART: Reveals a regular rate and rhythm without murmurs, gallops or rubs. ABDOMEN: Somewhat obese, soft, nontender without organomegaly. Normal bowel sounds are noted. No rebound or guarding is noted. : Deferred. EXTREMITIES: Reveal no clubbing, cyanosis, or edema. ASSESSMENT: 1. Anemia, status post transfusion x2 units. 2. Negative EGD. 3. Parkinson disease. 4. Hypertension. 5. Hyperlipidemia. 6. Restless legs syndrome. 7. Resolving aspiration pneumonia. 8. Generalized weakness. PLAN: 1. Continue to monitor the patient's blood count. 2. Monitor the patient's blood pressure. 3. Continue physical therapy and occupational therapy. 4. Continue Parkinson's medications. 5. DVT prophylaxis with PlexiPulse. 6. Decubitus precautions. 7. Stress ulcer prophylaxis. 8. Continue to monitor the patient's labs. 9. Continue to monitor the patient's respiratory status. Job ID: [id number]
[2019-01-11] MEDS: Atorvastatin Calcium 40 MG TAB PO SCH (21:39)
[2019-01-11] MEDS: clonazePAM 1 MG TAB PO SCH (21:39)
[2019-01-12] MEDS: Finasteride 5 MG TAB PO SCH (08:49)
[2019-01-12] MEDS: Polyethylene Glycol 3350 17 GM Packet PO PRN (08:49)
[2019-01-12] MEDS: Furosemide 40 MG TAB PO SCH (08:50)
[2019-01-12] MEDS: Ferrous Sulfate 325 MG TAB PO SCH (08:50)
[2019-01-12] MEDS: Pramipexole Di-HCl 0.25 MG TAB PO SCH ×2 (08:51→21:33)
[2019-01-12] MEDS: traMADol HCl 50 MG TAB PO PRN (08:52)
[2019-01-12] MEDS: Carbidopa/Levodopa CR 50-200 mg Tablet PO SCH ×2 (08:53→21:32)
[2019-01-12] MEDS: Loratadine 10 MG TAB PO PRN (08:53)
[2019-01-12] MEDS: HYDROcodone/Acetaminophen 7.5/325 mg Tablet PO PRN ×2 (11:31→21:39)
--- NOTE | 2019-01-12 19:42 | PRG ---
DATE OF SERVICE: 01/12/2019 SUBJECTIVE: Mr. Tubbs is a very pleasant 83-year-old white male who presented to the emergency room with weakness. He was found to be extremely anemic with a hemoglobin of 7.3. He did receive 2 units of packed red blood cells and was seen by GI. EGD did not show any active bleeding. He was found to have also leukocytosis and thought to possibly have an aspiration pneumonia. He was placed on Flagyl and cefepime initially, then switched over to oral antibiotics. He is now off and has finished his Flagyl and Omnicef. Scan was negative for pulmonary embolism. He is now at [facility] for PT and OT. The patient states he is having too much pain in his knees to be able to walk very far. We did contact Dr. Guan's office, but he is not due to have his next steroid shots for several weeks. He cannot have them any closer than 6 months, and his 6 months is off around April 22. Since he is not able to have steroid injections in his knees, we will try some diclofenac or Voltaren gel to those areas. PHYSICAL EXAMINATION: VITAL SIGNS: Reveal blood pressure is 141/67, pulse 77 to 88, respirations 20 to 22, O2 saturation is 95% to 96% on room air, and T-max 98.9. GENERAL: This is a well-developed, well-nourished, slightly obese white male, in no apparent distress at this time. HEENT: Reveals normocephalic and nontraumatic cranium. Pupils are equal, round, and reactive. Extraocular movements are intact. Nose and throat are dry. NECK: Supple without masses, nodes, or bruits. CHEST: Clear to auscultation. No rales, rhonchi, wheezes, or cough is heard. HEART: Reveals a regular rate and rhythm, but it is distant, without murmurs, gallops, rubs. ABDOMEN: Soft, nontender without organomegaly. Normal bowel sounds are noted in all 4 quadrants. No rebound or guarding is noted. GENITOURINARY: Deferred. EXTREMITIES: Reveal no clubbing, cyanosis, or edema. The patient has bilateral knee pain and makes it difficult for him to walk. ASSESSMENT: 1. Anemia, status post transfusion x2 units. 2. Negative esophagogastroduodenoscopy. 3. Parkinson disease. 4. Hypertension. 5. Hyperlipidemia. 6. Restless legs syndrome. 7. Aspiration pneumonia, which has resolved. 8. Generalized weakness. PLAN: 1. The patient has finished his Flagyl and his Omnicef. 2. Continue to monitor the patient's blood count. 3. Monitor the patient's blood pressure. 4. Continue PT and OT. 5. Continue Parkinson medication. 6. DVT prophylaxis with PlexiPulse. 7. Decubitus precautions. 8. Stress ulcer prophylaxis. 9. Continue to monitor the patient's labs. 10. Continue to monitor the patient's respiratory status. Job ID: [id number]
[2019-01-12] MEDS: Atorvastatin Calcium 40 MG TAB PO SCH (21:32)
[2019-01-12] MEDS: clonazePAM 1 MG TAB PO SCH (21:33)
[2019-01-13] MEDS: Diclofenac 1% 100 GM GEL TP SCH ×3 (06:07→19:48)
[2019-01-13] MEDS: HYDROcodone/Acetaminophen 7.5/325 mg Tablet PO PRN (08:25)
[2019-01-13] MEDS: Furosemide 40 MG TAB PO SCH (08:27)
[2019-01-13] MEDS: Ferrous Sulfate 325 MG TAB PO SCH (08:27)
[2019-01-13] MEDS: Polyethylene Glycol 3350 17 GM Packet PO SCH (08:28)
[2019-01-13] MEDS: Pramipexole Di-HCl 0.25 MG TAB PO SCH ×2 (08:28→19:42)
[2019-01-13] MEDS: Carbidopa/Levodopa CR 50-200 mg Tablet PO SCH ×2 (08:28→19:43)
[2019-01-13] MEDS: Finasteride 5 MG TAB PO SCH (08:34)
--- NOTE | 2019-01-13 16:30 | PRG ---
DATE OF SERVICE: 01/13/2019 SUBJECTIVE: Mr. Tubbs is a very pleasant 83-year-old white male, who was presented to the emergency room with weakness. He was found to be extremely anemic with a hemoglobin of 7.3. He was admitted to the hospital and had 2 units packed red blood cells. He was seen by GI in consultation and the EGD was done which did not show any active bleeding. He is also found to have leukocytosis and thought to have a possible aspiration pneumonia. He was placed on IV antibiotics and switched over to oral antibiotics, which is now finished. He is transferred to inpatient rehab for physical therapy and occupational therapy to increase his strength and stamina. The patient continues to have quite a bit of pain in both of his knees. He already has an appointment with Dr. Guan next Friday to have both his knees injected with steroids and his left knee to be injected with some type of gel. He states he cannot have it sooner than that because Medicare will pay for it. We did start him on some Voltaren gel this morning and hopefully that will help alleviate 20% or 30% of the pain, so he can get up and walk a bit better. He states he did walk some this morning, but he has quite a bit of pain. OBJECTIVE: VITAL SIGNS: Reveal blood pressure this morning was 173/81, secondary to his pain, usually it runs lower that; pulse 94 to 95; respirations 19; O2 saturation 96% on room air; T-max 98.3. GENERAL: This is a well-developed, well-nourished, very pleasant, slightly obese white male, in no apparent distress at this time. HEENT: Reveals normocephalic and nontraumatic cranium. Pupils are equal, round, and reactive. Extraocular movements are intact. Nose and throat are dry. NECK: Supple without masses, nodes, or bruits. CHEST: Clear to auscultation. No rales, rhonchi, wheezes are heard. No cough is noted. HEART: Reveals a regular rate and rhythm. No murmurs, gallops, or rubs are noted. ABDOMEN: Soft, nontender without organomegaly. Normal bowel sounds are noted. No rebound or guarding is noted. : Deferred. EXTREMITIES: Reveal no clubbing, cyanosis, or edema. The patient does have bilateral knee pain. His left knee is slightly more swollen than the right knee and the pain makes it difficult to walk. We will continue his diclofenac two or three times a day. ASSESSMENT: 1. Anemia, status post transfusion 2 units. 2. Negative esophagogastroduodenoscopy. 3. Parkinson disease. 4. Hypertension. 5. Hyperlipidemia. 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 7. Restless legs syndrome. 8. History of aspiration pneumonia. The patient has finished his oral antibiotics. 9. Generalized weakness. PLAN: 1. Continue to monitor the patient's blood count closely. 2. Continue to monitor the patient's blood pressure. 3. Continue Parkinson's medication. 4. DVT prophylaxis with PlexiPulse. 5. Decubitus precautions. 6. Stress ulcer prophylaxis. 7. Continue to monitor the patient's labs. 8. We will monitor the patient's respiratory status. 9. Physical therapy and occupational therapy. Job ID: [id number]
[2019-01-13] MEDS: traMADol HCl 50 MG TAB PO PRN (16:37)
[2019-01-13] MEDS: clonazePAM 1 MG TAB PO SCH (19:42)
[2019-01-13] MEDS: Atorvastatin Calcium 40 MG TAB PO SCH (19:43)
[2019-01-14] MEDS: Ferrous Sulfate 325 MG TAB PO SCH (08:55)
[2019-01-14] MEDS: Polyethylene Glycol 3350 17 GM Packet PO SCH (08:55)
[2019-01-14] MEDS: Furosemide 40 MG TAB PO SCH (08:55)
[2019-01-14] MEDS: Pramipexole Di-HCl 0.25 MG TAB PO SCH ×2 (08:55→20:51)
[2019-01-14] MEDS: Carbidopa/Levodopa CR 50-200 mg Tablet PO SCH ×2 (08:55→20:51)
[2019-01-14] MEDS: HYDROcodone/Acetaminophen 7.5/325 mg Tablet PO PRN (09:00)
[2019-01-14] MEDS: Diclofenac 1% 100 GM GEL TP SCH ×2 (09:01→20:51)
[2019-01-14] MEDS: Finasteride 5 MG TAB PO SCH (09:01)
--- NOTE | 2019-01-14 10:26 | PRG ---
DATE OF SERVICE: 01/14/2019 HISTORY: Mr. Tubbs is a very pleasant 83-year-old white male, who presented to the emergency room with weakness. He was found to be extremely anemic and had a hemoglobin of 7.3. He was admitted to the hospital, had 2 units of packed red blood cells. He was seen by GI in consultation. The EGD was done, which did not show any active bleeding. He was found to have leukocytosis and thought to have aspiration pneumonia. He was placed on IV antibiotics and eventually switched to oral antibiotics. He has now finished his oral antibiotics, and he is here for physical therapy and occupational therapy to increase his strength and stamina. He continues with quite a bit of pain in both of his knees. He has an appointment with Dr. Guan next Friday to have both of his knees injected with steroid. His left knee was injected with some type of gel. He is having a lot of difficulty getting out of bed today because he states he hurts so bad. He has already had some [place] and has had Voltaren Gel in both of his knees. PHYSICAL EXAMINATION: VITAL SIGNS: Blood pressure this morning was 149/68, pulse 75 to 88, respirations 19 to 20, O2 sat 95% to 96% on room air, and T-max 98.7. GENERAL: This is a well-developed, well-nourished, very pleasant, slightly obese white male, in no apparent distress except for his significant bilateral knee pain today. HEENT: Normocephalic and nontraumatic cranium. Pupils equal, round, and reactive. Extraocular movements are intact. Nose and throat are dry. NECK: Supple without masses, nodes or bruits. CHEST: Clear to auscultation. No rales, rhonchi, wheezes or cough is heard. HEART: Regular rate and rhythm without murmurs, gallops or rubs. ABDOMEN: Soft and nontender without organomegaly. Normal bowel sounds are noted in all 4 quadrants. No rebound or guarding is noted. : Deferred. EXTREMITIES: Pain in bilateral knees, left is a little worse. He has little swelling in that left knee also. He has been doing the Voltaren Gel 2 to 3 times a day and he took a [place] this morning for pain. ASSESSMENT: 1. Anemia. 2. Negative EGD. 3. Parkinson disease. 4. Osteoarthritis, mainly in his knees. 5. Hypertension. 6. Hyperlipidemia. 7. Restless legs syndrome. 8. History of aspiration pneumonia and the patient has finished antibiotics already. 9. Generalized weakness. PLAN: 1. Continue to monitor the patient's blood pressure closely. 2. Continue the pain management of his osteoarthritis. 3. Continue to monitor the patient's blood count. 4. Continue Parkinson's medication. 5. DVT prophylaxis with PlexiPulses. 6. Decubitus precautions and stress ulcer precautions. 7. Continue to monitor the patient's labs. 8. Monitor the patient's respiratory status. 9. Continue PT and OT. 10. Appointment with Dr. Guan next Friday for injections of his knees. Job ID: [id number]
[2019-01-14] MEDS: Atorvastatin Calcium 40 MG TAB PO SCH (20:51)
[2019-01-14] MEDS: clonazePAM 1 MG TAB PO SCH (20:51)
[2019-01-15] MEDS: Polyethylene Glycol 3350 17 GM Packet PO SCH (08:37)
[2019-01-15] MEDS: Furosemide 40 MG TAB PO SCH (08:37)
[2019-01-15] MEDS: Ferrous Sulfate 325 MG TAB PO SCH (08:37)
[2019-01-15] MEDS: Pramipexole Di-HCl 0.25 MG TAB PO SCH ×2 (08:37→20:44)
[2019-01-15] MEDS: Finasteride 5 MG TAB PO SCH (08:37)
[2019-01-15] MEDS: Carbidopa/Levodopa CR 50-200 mg Tablet PO SCH ×2 (08:38→20:44)
[2019-01-15] MEDS: Diclofenac 1% 100 GM GEL TP SCH ×2 (08:39→20:44)
[2019-01-15] MEDS: Loratadine 10 MG TAB PO PRN (08:52)
--- NOTE | 2019-01-15 14:46 | PRG ---
DATE OF SERVICE: 01/15/2019 SUBJECTIVE: Mr. Tubbs is a well-developed, well-nourished, 83-year-old white male. He presented to the emergency room with extreme weakness and was found to be extremely anemic with a hemoglobin of 7.3. He was admitted to the hospital and had 2 units of packed red blood cells and was seen in consultation by GI. EGD did not show any active bleeding. He was also found to have leukocytosis and thought to have aspiration pneumonia. He was placed on IV antibiotics. Eventually switched to oral antibiotics and then transferred to [facility] for PT and OT. He has finished his oral antibiotics here, but he is having significant difficulty with weakness. He has had significant problems with pain in his knees and is supposed to get a steroid injection by Dr. Guan next Friday. He also gets a gel injection in his left knee. We did try him on some Voltaren gel, which actually has helped things. Yesterday, he walked a few feet and this morning, he walked 46 feet followed by 76 feet followed by 86 feet. He seems to be doing much better on this regimen. PHYSICAL EXAMINATION: VITAL SIGNS: Today reveal blood pressure 140/68, pulse 72, respirations 18 to 20, and O2 saturation 97% to 98% on room air. T-max is 98.2. GENERAL: This is a well-developed, well-nourished, slightly obese white male, with complaints of bilateral knee pain, which is slightly better on the Voltaren gel. HEENT: Reveals normocephalic and nontraumatic cranium. Pupils are equal, round, and reactive. Extraocular movements are intact. Nose and throat are moist this morning. NECK: Supple without masses, nodes, or bruits. CHEST: Clear to auscultation. No rales, rhonchi, wheezes, or cough is heard. HEART: Reveals a regular rate and rhythm without murmurs, gallops, or rubs. ABDOMEN: Soft, nontender, without organomegaly. Normal bowel sounds are noted. No rebound or guarding is noted. : Deferred. EXTREMITIES: Reveal no clubbing or cyanosis with trace edema. Pain is bilateral in both knees, but worse on the left. The patient continues Voltaren gel 2 to 3 times a day. ASSESSMENT: 1. Anemia. 2. Negative EGD. 3. Parkinson disease. 4. Osteoarthritis, mainly in his knees. 5. Hypertension. 6. Hyperlipidemia. 7. Restless legs syndrome. 8. History of aspiration pneumonia, and the patient has finished his oral antibiotics. 9. Generalized weakness. PLAN: 1. Continue to monitor the patient's blood pressure closely. 2. Continue pain management for the osteoarthritis. 3. Continue Voltaren gel 2 to 3 times a day. 4. Monitor the patient's blood count. 5. Continue Parkinson's medication. 6. DVT prophylaxis with PlexiPulses. 7. Decubitus precautions. 8. Stress ulcer precautions. 9. Continue to monitor the patient's labs. 10. Monitor the patient's respiratory status. 11. Continue PT and OT. 12. Appointment with Dr. Guan next Friday for knee injections bilaterally. Job ID: [id number]
[2019-01-15] MEDS: HYDROcodone/Acetaminophen 7.5/325 mg Tablet PO PRN (17:19)
[2019-01-15] MEDS: Atorvastatin Calcium 40 MG TAB PO SCH (20:44)
[2019-01-15] MEDS: clonazePAM 1 MG TAB PO SCH (20:45)
[2019-01-16] MEDS: HYDROcodone/Acetaminophen 7.5/325 mg Tablet PO PRN ×2 (04:37→17:35)
[2019-01-16] MEDS: Polyethylene Glycol 3350 17 GM Packet PO SCH (08:48)
[2019-01-16] MEDS: Ferrous Sulfate 325 MG TAB PO SCH (08:49)
[2019-01-16] MEDS: Furosemide 40 MG TAB PO SCH (08:49)
[2019-01-16] MEDS: Finasteride 5 MG TAB PO SCH (08:49)
[2019-01-16] MEDS: Pramipexole Di-HCl 0.25 MG TAB PO SCH ×2 (08:49→21:12)
[2019-01-16] MEDS: Carbidopa/Levodopa CR 50-200 mg Tablet PO SCH ×2 (08:49→21:12)
[2019-01-16] MEDS: Diclofenac 1% 100 GM GEL TP SCH ×2 (08:51→21:11)
[2019-01-16] MEDS: Atorvastatin Calcium 40 MG TAB PO SCH (21:12)
[2019-01-16] MEDS: clonazePAM 1 MG TAB PO SCH (21:13)
[2019-01-17 05:34] VITALS: BMI 25.5
[2019-01-17] MEDS: Carbidopa/Levodopa CR 50-200 mg Tablet PO SCH ×2 (08:32→20:38)
[2019-01-17] MEDS: Pramipexole Di-HCl 0.25 MG TAB PO SCH ×2 (08:32→20:38)
[2019-01-17] MEDS: Ferrous Sulfate 325 MG TAB PO SCH (08:32)
[2019-01-17] MEDS: Diclofenac 1% 100 GM GEL TP SCH ×2 (08:33→20:39)
[2019-01-17] MEDS: Furosemide 40 MG TAB PO SCH (08:33)
[2019-01-17] MEDS: Finasteride 5 MG TAB PO SCH (08:33)
[2019-01-17] MEDS: Polyethylene Glycol 3350 17 GM Packet PO SCH (08:34)
[2019-01-17] MEDS: HYDROcodone/Acetaminophen 7.5/325 mg Tablet PO PRN ×2 (08:35→16:05)
[2019-01-17] MEDS: Atorvastatin Calcium 40 MG TAB PO SCH (20:38)
[2019-01-17] MEDS: clonazePAM 1 MG TAB PO SCH (20:38)
--- NOTE | 2019-01-17 21:26 | PRG ---
DATE OF SERVICE: 01/16/2019 SUBJECTIVE: The patient is lying in the bed, feels well, very weak, minimally confused, but cooperating well with therapy and nurses. Appears to be getting stronger. He is also complaining of persistent pain in his knees. OBJECTIVE: VITAL SIGNS: Show his blood pressure 176/77, pulse 76, respirations 27, O2 sats 95% on room air, afebrile. LUNGS: Clear. CARDIAC: Showed regular rhythm. ABDOMEN: Soft and nontender. SKIN AND EXTREMITIES: Show tenderness to palpation of both knees. NEUROLOGIC: Shows no focal findings. ASSESSMENT: Significant arthritis in both knees, persistent anemia, negative EGD, stable hypertension, resolved aspiration pneumonia. PLAN: Continue PT/OT. Continue Voltaren gel. Continue only Tylenol for pain. Follow up with orthopedic surgeon next week for injections. Continue Parkinson's medicines. Job ID: [id number]
--- NOTE | 2019-01-17 21:29 | PRG ---
DATE OF SERVICE: 01/17/[address] Gloria Seaman. SUBJECTIVE: The patient feels well, lying in bed, states he feels weak, but has no difficulty at rest, is eating better. OBJECTIVE: VITAL SIGNS: Shows temperature is 96.9, pulse 80, respirations 20, O2 sats 96% on room air, blood pressure 159/70. LUNGS: Clear. CARDIAC: Showed regular rhythm. ABDOMEN: Soft and nontender. No masses or organomegaly. SKIN: Extremities show crepitus in both knees. ASSESSMENT: 1. Anemia of unknown etiology, appears to be stabilizing and resolving. 2. Stable Parkinson disease, limiting exercise capability. 3. Severe degenerative joint disease in limiting exercise capability. 4. Hypertension, controlled to goal. 5. Aspiration pneumonia, resolved. PLAN: 1. Continue PT/OT. 2. Continue to monitor vital signs with therapy. 3. Continue Tylenol, . 4. Continue Parkinson's medicine. 5. Continue DVT and stress ulcer prophylaxis indication. Job ID: [id number]
[2019-01-18] MEDS: Pramipexole Di-HCl 0.25 MG TAB PO SCH ×2 (08:52→21:55)
[2019-01-18] MEDS: traMADol HCl 50 MG TAB PO PRN ×2 (08:52→21:58)
[2019-01-18] MEDS: Finasteride 5 MG TAB PO SCH (08:52)
[2019-01-18] MEDS: Ferrous Sulfate 325 MG TAB PO SCH (08:53)
[2019-01-18] MEDS: Carbidopa/Levodopa CR 50-200 mg Tablet PO SCH ×2 (08:53→21:54)
[2019-01-18] MEDS: Furosemide 40 MG TAB PO SCH (08:53)
[2019-01-18] MEDS: Diclofenac 1% 100 GM GEL TP SCH ×2 (08:53→21:55)
[2019-01-18] MEDS: Polyethylene Glycol 3350 17 GM Packet PO SCH (08:53)
[2019-01-18] MEDS: HYDROcodone/Acetaminophen 7.5/325 mg Tablet PO PRN (13:43)
[2019-01-18] MEDS: Atorvastatin Calcium 40 MG TAB PO SCH (21:54)
[2019-01-18] MEDS: clonazePAM 1 MG TAB PO SCH (21:54)
[2019-01-19] MEDS: Polyethylene Glycol 3350 17 GM Packet PO SCH (08:52)
[2019-01-19] MEDS: Carbidopa/Levodopa CR 50-200 mg Tablet PO SCH ×2 (08:52→20:57)
[2019-01-19] MEDS: Finasteride 5 MG TAB PO SCH (08:52)
[2019-01-19] MEDS: Pramipexole Di-HCl 0.25 MG TAB PO SCH ×2 (08:52→20:58)
[2019-01-19] MEDS: Furosemide 40 MG TAB PO SCH (08:52)
[2019-01-19] MEDS: Ferrous Sulfate 325 MG TAB PO SCH (08:52)
[2019-01-19] MEDS: HYDROcodone/Acetaminophen 7.5/325 mg Tablet PO PRN (08:53)
[2019-01-19] MEDS: Diclofenac 1% 100 GM GEL TP SCH ×2 (08:53→20:58)
--- NOTE | 2019-01-19 09:57 | PRG ---
DATE OF SERVICE: 01/18/2019 SUBJECTIVE: Mr. Tubbs is a well-developed, well-nourished, very pleasant, 83-year-old white male, who had initially presented to the emergency room with extreme weakness. He was found to be extremely anemic with a hemoglobin 7.3. He was admitted to the hospital and received 2 units of packed red blood cells. GI saw the patient in consultation and EGD did not show any active bleeding. Eventually, he was found to have some leukocytosis and thought to have possible aspiration pneumonia. He was placed on his IV antibiotics and eventually switched to oral antibiotics. He has been transferred to [facility] for physical therapy and occupational therapy. The patient has finished his antibiotics here and now has had extreme weakness. He is getting physical therapy and occupational therapy to increase his strength and stamina. He is supposed to have steroid injections to both knees tomorrow by Dr. Guan. He is also to get a gel injection to left knee. The patient states he is really hurting bad and doing the best he can in physical therapy. He walks with a very slow guarded gait and he had 3 therapists around him this morning to make sure that he did not fall. OBJECTIVE: VITAL SIGNS: Today reveal blood pressure 169/86, pulse 71 to 75, respirations 20, O2 saturation 95% to 96% on room air, T-max 98.2. GENERAL: This is a well-developed, well-nourished, slightly obese white male, in no apparent distress at this time. HEENT: Normocephalic, nontraumatic cranium. Pupils are equal, round, reactive. Extraocular movements are intact. Nose and throat are slightly dry this morning. NECK: Supple without masses, nodes, or bruits. CHEST: Clear to auscultation. Breath sounds are very distant. No rales, rhonchi, or wheezes are noted. HEART: Reveals a regular rate without murmurs, gallops, or rubs. ABDOMEN: Soft, nontender, obese. No organomegaly is able to be felt. Normal bowel sounds noted in all 4 quadrants. No rebound or guarding is noted. : Deferred. EXTREMITIES: Reveal no clubbing or cyanosis. Still with only trace edema. The patient continues to complain of bilateral knee pain, the left knee is much worse. The patient states that the Voltaren gel 2 to 3 times a day does seem to help a little bit. ASSESSMENT: 1. Severe osteoarthritis of both knees. 2. Anemia. 3. Negative esophagogastroduodenoscopy. 4. Parkinson disease. 5. Hypertension. 6. Hyperlipidemia. 7. Restless legs syndrome. 8. History of aspiration pneumonia and the patient has finished all of his oral antibiotics. 9. Generalized weakness. PLAN: 1. Continue to monitor the patient's blood pressure closely. 2. Continue pain management for osteoarthritis. 3. The patient has appointment with Dr. Guan tomorrow for steroid injections on both knees. 4. Continue Voltaren gel 2 to 3 times a day. 5. Monitor the patient's blood count. 6. Continue Parkinson medications. 7. DVT prophylaxis with PlexiPulse. 8. Decubitus precautions. 9. Stress ulcer precautions. 10. Continue to monitor the patient's labs. 11. Monitor the patient's respiratory status. 12. Continue PT and OT. 13. Call Dr. Guan tomorrow. Job ID: [id number]
--- NOTE | 2019-01-19 20:38 | PRG ---
DATE OF SERVICE: 01/19/2019 SUBJECTIVE: Mr. Tubbs is a very pleasant 83-year-old white male, who presented to the emergency room with extreme weakness. He was found to be extremely anemic with a hemoglobin of 7.3. He was admitted to the hospital and transfused with 2 units of packed red blood cells. Seen in consultation by GI and EGD did not show any active bleeding. Eventually, he was found to have some leukocytosis and thought to also have a possible aspiration pneumonia. He initially was started on IV antibiotics and switched over to oral antibiotics. He is transferred to [facility], where he has finished his oral antibiotics and now is in physical therapy and occupational therapy. The patient states he is doing well and today went to see Dr. Guan, who did an injection in each knee with steroids and in the left knee with some type of gel. He is back and redoing his therapy. His only complaint today is that he feels like he is constipated. OBJECTIVE: VITAL SIGNS: Today reveal blood pressure this morning 176/83, pulse 71 to 76, respirations 20, O2 saturation 94% to 96% on room air, and T-max 98.2. GENERAL: This is a well-developed, well-nourished, slightly obese white male, in no apparent distress at this time. HEENT: Normocephalic and nontraumatic cranium. Pupils are equal, round, and reactive. Extraocular movements are intact. Nose and throat are slightly dry, but clear. NECK: Supple without masses, nodes, or bruits. CHEST: Clear to auscultation. No rales, rhonchi, or wheezes are noted, but the breath sounds are noted to be distant. HEART: Reveals a regular rate and rhythm. No murmurs, gallops, or rubs are noted. ABDOMEN: Soft and nontender without organomegaly. No rebound or guarding is noted. Bowel sounds are normal in all 4 quadrants. GENITOURINARY: Deferred. EXTREMITIES: Reveal no clubbing or cyanosis with trace edema bilaterally. The patient has Band-Aids on both his knees from where he got his injections today. He states he has not felt a difference yet, but usually takes a while for the steroids to kick in. ASSESSMENT: 1. Severe osteoarthritis of both knees. 2. Anemia. 3. Negative EGD. 4. Parkinson's disease. 5. Hypertension. 6. Restless legs syndrome. 7. Hyperlipidemia. 8. Recent aspiration pneumonia and the patient have finished his oral antibiotics. 9. Generalized weakness. PLAN: 1. Continue to monitor the patient's blood pressure. 2. Continue to monitor the patient's blood count. 3. Continue on Parkinson's drugs. 4. Continue Voltaren gel 2 to 3 times a day. 5. Appointment with Dr. Guan scheduled for [address] 6. Continue pain management for osteoarthritis. 7. DVT prophylaxis with PlexiPulse. 8. Decubitus precautions. 9. Stress ulcer precautions. 10. Continue to monitor the patient's labs. 11. Monitor the patient's respiratory status. 12. Continue PT and OT. Job ID: [id number]
[2019-01-19] MEDS: Atorvastatin Calcium 40 MG TAB PO SCH (20:57)
[2019-01-19] MEDS: clonazePAM 1 MG TAB PO SCH (20:58)
[2019-01-20] MEDS: Diclofenac 1% 100 GM GEL TP SCH ×2 (08:17→20:47)
[2019-01-20] MEDS: Finasteride 5 MG TAB PO SCH (08:17)
[2019-01-20] MEDS: Pramipexole Di-HCl 0.25 MG TAB PO SCH ×2 (08:17→20:46)
[2019-01-20] MEDS: Ferrous Sulfate 325 MG TAB PO SCH (08:17)
[2019-01-20] MEDS: Polyethylene Glycol 3350 17 GM Packet PO SCH (08:17)
[2019-01-20] MEDS: Furosemide 40 MG TAB PO SCH (08:17)
[2019-01-20] MEDS: Carbidopa/Levodopa CR 50-200 mg Tablet PO SCH ×2 (08:17→20:47)
--- NOTE | 2019-01-20 14:36 | PRG ---
DATE OF SERVICE: 01/20/2019 SUBJECTIVE: This is a well-developed, well-nourished, very pleasant 83-year-old white male, who comes in to the emergency room with extreme weakness. He was found to be extremely anemic with a hemoglobin of 7.3. He was admitted to the hospital and transfused with 2 units of packed red blood cells. The patient was seen in consultation by GI. An EGD was done, which did not reveal any active bleeding. Eventually, he was found to have a leukocytosis and not to possibly have also aspiration pneumonia. He was treated initially with IV antibiotics and then switched over to oral antibiotics. He was transferred to [facility] [place], where he continues oral antibiotics until they were completed. Now, he is here for physical therapy and occupational therapy. The patient states he did get shots in his knees yesterday from Dr. Guan's office and a gel in his left knee. He states he feels much better today and hopes he can walk a lot better. OBJECTIVE: VITAL SIGNS: Today reveal blood pressure 161/75, pulse 70 to 83, respirations 20, O2 saturation 97% on room air, T-max 98.3. GENERAL: This is a well-developed, well-nourished, very pleasant, slightly obese white male, in no apparent distress at this time. HEENT: Normocephalic, nontraumatic cranium. Pupils are equal, round, reactive. Extraocular movements are intact. Nose and throat are slightly dry. NECK: Supple without masses, nodes, or bruits. CHEST: Clear to auscultation. No rales, rhonchi, wheezes, or cough is heard. HEART: Regular rate and rhythm without murmurs, gallops, or rubs. ABDOMEN: Soft, nontender without organomegaly. Normal bowel sounds are noted. No rebound or guarding is noted. GENITOURINARY: Deferred. EXTREMITIES: No clubbing, cyanosis, or edema today. The patient's Band-Aids from both of his knees are gone. He states he feels much better and has much less pain today. ASSESSMENT: 1. Severe osteoarthritis, both knees, status post steroid injection done on yesterday. 2. Gel injections, left knee. 3. Anemia. 4. Parkinson disease. 5. Hypertension. 6. Restless legs syndrome. 7. Hyperlipidemia. 8. Aspiration pneumonia, and the patient has finished his oral antibiotics. 9. Generalized weakness. 10. Negative EGD. PLAN: 1. Continue to monitor the patient's blood pressure and blood count. 2. Continue Parkinson's medication. 3. Continue Voltaren gel 2 to 3 times a day. 4. Appointment with Dr. Guan will be scheduled down the road. 5. Continue pain management for osteoarthritis. 6. DVT prophylaxis with PlexiPulse. 7. Decubitus precautions. 8. Stress ulcer prophylaxis. 9. Continue to monitor the patient's labs. 10. Continue to monitor the patient's respiratory status. 11. Continue PT and OT. Job ID: [id number]
[2019-01-20] MEDS: Atorvastatin Calcium 40 MG TAB PO SCH (20:47)
[2019-01-20] MEDS: clonazePAM 1 MG TAB PO SCH (20:47)
[2019-01-20] MEDS: HYDROcodone/Acetaminophen 7.5/325 mg Tablet PO PRN (23:41)
[2019-01-21] MEDS: traMADol HCl 50 MG TAB PO PRN (01:39)
[2019-01-21 06:09] LABS: AST (SGOT) 18 U/L (5-34); Albumin 3.3 g/dL (3.4-4.8); Alkaline Phosphatase 75 U/L (40-150); Anion Gap 14 mmol/L (10-20); BUN (Urea Nitrogen) 17 mg/dL (8.4-25.7); Bilirubin, Total 0.3 mg/dL (0.2-1.2); Calc. Creatinine Clearance 75 mL/min (70-130); Calcium 9.2 mg/dL (7.8-10.44); Carbon Dioxide 30 mmol/L (23-31); Chloride 99 mmol/L (98-107); Estimated GFR-MDRD 84; Globulin 2.7 g/dL (2.4-3.5); Glucose 104 mg/dL (83-110); Potassium 3.8 mmol/L (3.5-5.1); Sodium 139 mmol/L (136-145)
[2019-01-21 06:19] LABS: ALT (SGPT) Less than 3 U/L (8-55)
[2019-01-21 06:21] LABS: #Basophils 0.1 thou/uL (0.0-0.2); #Eosinphils 0.1 thou/uL (0.0-0.7); #Lymphocytes 1.4 thou/uL (1.20-3.40); #Monocytes 0.8 thou/uL (0.11-0.59); #Neutrophils 4.2 thou/uL (1.40-6.50); %Eosinophils 1.2 % (0.0-10.0); %Lymphocytes 21.2 % (21.0-51.0); %Monocytes 12.4 % (0.0-10.0); %Neutrophils 63.3 % (42.0-75.0); Hemoglobin 8.6 g/dL (14.0-18.0); Mean Corpuscular HGB CONC 28.4 g/dL (32.0-36.0); Mean Corpuscular Hemoglobin 21.3 pg (27.0-31.0); Mean Corpuscular Volume 75.2 fL (78.0-98.0); Mean Platelet Volume 7.2 fL (7.4-10.4); Platelet Count 333 thou/uL (130-400); Red Blood Cell (RBC) Count 4.01 mill/uL (4.70-6.10); White Blood Cell (WBC) Count 6.6 thou/uL (4.8-10.8)
[2019-01-21] MEDS: Furosemide 40 MG TAB PO SCH (08:14)
[2019-01-21] MEDS: Diclofenac 1% 100 GM GEL TP SCH ×2 (08:14→21:17)
[2019-01-21] MEDS: Polyethylene Glycol 3350 17 GM Packet PO SCH (08:14)
[2019-01-21] MEDS: Ferrous Sulfate 325 MG TAB PO SCH (08:14)
[2019-01-21] MEDS: Finasteride 5 MG TAB PO SCH (08:14)
[2019-01-21] MEDS: Carbidopa/Levodopa CR 50-200 mg Tablet PO SCH ×2 (08:14→21:20)
[2019-01-21] MEDS: Pramipexole Di-HCl 0.25 MG TAB PO SCH ×2 (08:14→21:18)
[2019-01-21] MEDS: HYDROcodone/Acetaminophen 7.5/325 mg Tablet PO PRN ×2 (08:53→21:18)
--- NOTE | 2019-01-21 10:39 | PRG ---
DATE OF SERVICE: 01/21/2019 SUBJECTIVE: This is a well-nourished very pleasant 83-year-old white male who went to the emergency room with extreme weakness. He was found to be extremely anemic with a hemoglobin 7.3. He was admitted to the hospital and transfused with 2 units of packed red blood cells. Post GI consultation, EGD was done. Did not reveal any active bleeding. He was found to have a leukocytosis and thought to have aspiration pneumonia. He was treated with IV antibiotics and then switched to oral antibiotics and has finished since he has been here at [facility]. He has been doing very well, but is very weak. He saw Dr. Guan's office on Friday and had steroids injected both knees, which has decreased the pain. He is very weak and sometimes his Parkinson's really contributes to the weakness. OBJECTIVE: VITAL SIGNS: Today reveal blood pressure slightly elevated 174/89, last night was 129/62. Pulse 66 to 80, respirations 20 to 22, O2 saturation 97% to 99% on room air, T-max 98.0. GENERAL: This is a well-developed, well-nourished, slightly obese white male, in no apparent distress at this time. HEENT: Reveals normocephalic and nontraumatic cranium. Pupils equal, round, and reactive. Extraocular movements are intact. Nose and throat are slightly dry, but clear. NECK: Supple without masses, nodes, or bruits. CHEST: Clear to auscultation. No rales, rhonchi, wheezes, or cough is heard. HEART: Reveals a regular rate and rhythm without murmurs, gallops or rubs. ABDOMEN: Obese, soft, nontender without organomegaly. Normal bowel sounds are noted in all 4 quadrants. No rebound or guarding is noted. : Deferred. EXTREMITIES: Reveal no clubbing, cyanosis, or edema. The patient states he is feeling better, but he is very weak today. ASSESSMENT: 1. Severe osteoarthritis, both knees, status post steroid injection done Friday. 2. Gel injection of left knee. 3. Anemia. 4. Parkinson disease. 5. Hypertension. 6. Hyperlipidemia. 7. Restless legs syndrome. 8. Aspiration pneumonia and the patient has finished his oral antibiotics. 9. Generalized weakness. PLAN: 1. The patient's would like to take him out on a pass for about [address] around town to get him out of the hospital, so he is not so anxious. David Cat approved that. 2. Continue to monitor the patient's blood pressure and blood count. 3. Continue Parkinson's drugs. 4. Continue Voltaren gel 2 to 3 times a day. 5. Continue pain management. 6. DVT prophylaxis with PlexiPulse. 7. Decubitus precautions. 8. Stress ulcer prophylaxis. 9. Continue to monitor the patient's labs. 10. The patient had lab work this morning, which was excellent. He is still somewhat anemic, but he is stable. His creatinine is 0.87. 11. Continue to monitor the patient's respiratory status. 12. Continue physical therapy and occupational therapy. Job ID: [id number] MTDD
[2019-01-21] MEDS: Atorvastatin Calcium 40 MG TAB PO SCH (21:18)
[2019-01-21] MEDS: clonazePAM 1 MG TAB PO SCH (21:19)
[2019-01-22] MEDS: Ferrous Sulfate 325 MG TAB PO SCH (08:53)
[2019-01-22] MEDS: Finasteride 5 MG TAB PO SCH (08:54)
[2019-01-22] MEDS: Polyethylene Glycol 3350 17 GM Packet PO SCH (08:54)
[2019-01-22] MEDS: Pramipexole Di-HCl 0.25 MG TAB PO SCH ×2 (08:54→20:54)
[2019-01-22] MEDS: Furosemide 40 MG TAB PO SCH (08:54)
[2019-01-22] MEDS: Carbidopa/Levodopa CR 50-200 mg Tablet PO SCH ×2 (08:54→20:55)
[2019-01-22] MEDS: Diclofenac 1% 100 GM GEL TP SCH ×2 (08:55→20:54)
[2019-01-22] MEDS: Atorvastatin Calcium 40 MG TAB PO SCH (20:54)
[2019-01-22] MEDS: clonazePAM 1 MG TAB PO SCH (20:55)
[2019-01-22] MEDS: HYDROcodone/Acetaminophen 7.5/325 mg Tablet PO PRN (22:14)
[2019-01-23] MEDS: Furosemide 40 MG TAB PO SCH (08:13)
[2019-01-23] MEDS: Carbidopa/Levodopa CR 50-200 mg Tablet PO SCH ×2 (08:13→20:14)
[2019-01-23] MEDS: Ferrous Sulfate 325 MG TAB PO SCH (08:13)
[2019-01-23] MEDS: Pramipexole Di-HCl 0.25 MG TAB PO SCH ×2 (08:14→20:13)
[2019-01-23] MEDS: Finasteride 5 MG TAB PO SCH (08:15)
[2019-01-23] MEDS: Diclofenac 1% 100 GM GEL TP SCH ×2 (08:16→21:34)
[2019-01-23] MEDS: Polyethylene Glycol 3350 17 GM Packet PO SCH (08:16)
--- NOTE | 2019-01-23 15:59 | PRG ---
DATE OF SERVICE: 01/23/2019 SUBJECTIVE: Mr. Tubbs is doing well. He is up in his chair. His family is in the room. He denies any questions or concerns. He finished his lunch. He states that he is doing well except he continues to have weakness in his legs. OBJECTIVE: VITAL SIGNS: He is afebrile. Heart rate is 64; respirations 18; oxygen saturation 96% on room air; and blood pressure was 176/74, it was this morning before he got his medications, asked nursing to check it again and to call me if it is still more than 140/90, yesterday evening, it was 136/79. CARDIOVASCULAR SYSTEM: S1 and S2 plus. RESPIRATORY SYSTEM: Normal vesicular breath sounds. ABDOMEN: Soft and nontender. Bowel sounds heard in all quadrants. EXTREMITIES: Without cyanosis or clubbing. Peripheral pulses are palpable. CENTRAL NERVOUS SYSTEM: Awake and responsive. Generalized weakness. IMPRESSION: 1. Parkinson disease. 2. Dyslipidemia. 3. Hypertension. 4. Diastolic dysfunction. 5. Osteoarthritis. 6. Resolved aspiration pneumonitis. 7. Improving deconditioning. PLAN: 1. Continue current medications. 2. Heart-healthy diet. 3. Monitor blood pressure and adjust medications as needed. 4. DVT prophylaxis with PlexiPulses. 5. Decubitus precautions. 6. Stress ulcer prophylaxis. 7. Routine laboratory values. 8. Continue PT and OT. 9. Aspiration precautions and speech therapy. 10. Discussed with the patient and family in detail. All questions answered. Job ID: [id number]
[2019-01-23] MEDS: clonazePAM 1 MG TAB PO SCH (20:14)
[2019-01-23] MEDS: Atorvastatin Calcium 40 MG TAB PO SCH (20:14)
[2019-01-23] MEDS: HYDROcodone/Acetaminophen 7.5/325 mg Tablet PO PRN (20:14)
[2019-01-24] MEDS: Ferrous Sulfate 325 MG TAB PO SCH (08:24)
[2019-01-24] MEDS: Diclofenac 1% 100 GM GEL TP SCH ×2 (08:26→21:23)
[2019-01-24] MEDS: Finasteride 5 MG TAB PO SCH (08:27)
[2019-01-24] MEDS: Pramipexole Di-HCl 0.25 MG TAB PO SCH ×2 (08:27→21:21)
[2019-01-24] MEDS: Furosemide 40 MG TAB PO SCH (08:27)
[2019-01-24] MEDS: Carbidopa/Levodopa CR 50-200 mg Tablet PO SCH ×2 (08:27→21:23)
[2019-01-24] MEDS: Polyethylene Glycol 3350 17 GM Packet PO SCH (08:28)
[2019-01-24] MEDS: clonazePAM 1 MG TAB PO SCH (21:21)
[2019-01-24] MEDS: traMADol HCl 50 MG TAB PO PRN (21:22)
[2019-01-24] MEDS: Atorvastatin Calcium 40 MG TAB PO SCH (21:23)
[2019-01-25] MEDS: Ferrous Sulfate 325 MG TAB PO SCH (08:51)
[2019-01-25] MEDS: Diclofenac 1% 100 GM GEL TP SCH ×2 (08:56→20:58)
[2019-01-25] MEDS: Carbidopa/Levodopa CR 50-200 mg Tablet PO SCH ×2 (08:56→20:58)
[2019-01-25] MEDS: Finasteride 5 MG TAB PO SCH (08:57)
[2019-01-25] MEDS: Furosemide 40 MG TAB PO SCH (08:57)
[2019-01-25] MEDS: Pramipexole Di-HCl 0.25 MG TAB PO SCH ×2 (08:58→21:10)
[2019-01-25] MEDS: Polyethylene Glycol 3350 17 GM Packet PO SCH (09:06)
[2019-01-25] MEDS: traMADol HCl 50 MG TAB PO PRN (10:43)
--- NOTE | 2019-01-25 19:45 | PRG ---
DATE OF SERVICE: 01/25/2019 SUBJECTIVE: Mr. Tubbs is a very pleasant 83-year-old white male, presented to the emergency room with extreme weakness. He was found to be extremely anemic. He had a hemoglobin of 7.3, required 2 units of packed red blood cells. Post transfusion, he was seen by GI. EGD was done. It did not reveal any active bleeding. He was found to have a leukocytosis and also thought to have aspiration pneumonia. Treated with IV antibiotics and then switched to oral antibiotics. He was transferred to [facility] for PT and OT where he finished his oral antibiotics. The patient states he thinks his knee is a little bit better since he got his injection about a week ago from Dr. Guan's office of steroids and some topical gel. He still is very weak, and his Parkinson's does also contribute to his weakness. OBJECTIVE: VITAL SIGNS: Today reveal blood pressure 171/82, pulse 62 to 69, respirations 18, O2 saturation 96% to 97% on room air, and T-max 98.3. GENERAL: This is a well-developed, well-nourished white male, in no apparent distress at this time. He has not had any therapy this morning. He is waiting for them to come to start his walk. HEENT: Reveals normocephalic and nontraumatic cranium. Pupils equal, round, and reactive. Extraocular movements are intact. Nose and throat are moist. NECK: Supple without masses, nodes, or bruits. CHEST: Clear to auscultation. No rales, rhonchi, or wheezes are heard. HEART: Reveals a regular rate and rhythm without murmurs, gallops, or rubs. ABDOMEN: Obese, soft, nontender without organomegaly. Normal bowel sounds are noted. No rebound or guarding is noted. GENITOURINARY: Exam is deferred. EXTREMITIES: Reveal no clubbing, cyanosis, or edema. The patient states he is still very weak in his right knee bothers him more than the left knee. ASSESSMENT: 1. Severe osteoarthritis, both knees, status post steroid injection done one week ago. 2. Gel injection of the left knee. 3. Anemia. 4. Parkinson disease. 5. Hypertension. 6. Hyperlipidemia. 7. Restless legs syndrome. 8. Aspiration pneumonia in the past, and he has now finished all of his antibiotics. 9. Generalized weakness. PLAN: 1. Continue to monitor the patient's blood pressure and blood count. 2. Continue Parkinson's medications. 3. Continue Voltaren gel 2 to 3 times a day. 4. DVT prophylaxis with PlexiPulse. 5. Decubitus precautions. 6. Stress ulcer prophylaxis. 7. Continue to monitor the patient's labs. 8. Continue to monitor the patient's respiratory status. 9. Continue physical therapy and occupational therapy. Job ID: [id number]
[2019-01-25] MEDS: clonazePAM 1 MG TAB PO SCH (20:58)
[2019-01-25] MEDS: Atorvastatin Calcium 40 MG TAB PO SCH (20:58)
[2019-01-25] MEDS ORDERED: Pramipexole Di-HCl 0.25 MG TAB PO SCH (21:15)
[2019-01-26] MEDS: traMADol HCl 50 MG TAB PO PRN (07:28)
[2019-01-26] MEDS: Ferrous Sulfate 325 MG TAB PO SCH (07:30)
[2019-01-26] MEDS: Carbidopa/Levodopa CR 50-200 mg Tablet PO SCH ×2 (09:22→21:21)
[2019-01-26] MEDS: Pramipexole Di-HCl 0.25 MG TAB PO SCH ×2 (09:23→21:22)
[2019-01-26] MEDS: Furosemide 40 MG TAB PO SCH (09:24)
[2019-01-26] MEDS: Diclofenac 1% 100 GM GEL TP SCH ×2 (09:24→21:24)
[2019-01-26] MEDS: Finasteride 5 MG TAB PO SCH (09:24)
--- NOTE | 2019-01-26 10:20 | PRG ---
DATE OF SERVICE: 01/26/2019 SUBJECTIVE: Mr. Tubbs is a very pleasant 83-year-old white male, who presented to the emergency room with extreme weakness. He was extremely anemic and had to have 2 units of packed red blood cells because of a hemoglobin of 7.3. Post transfusion, EGD was done, and the patient did not have any active bleeding found on EGD. He was found to have leukocytosis and thought to have aspiration pneumonia and therefore was treated with IV antibiotics. Those were switched to oral antibiotics and he did finish those here at [facility]. He was transferred here for PT and OT to increase his strength and stamina. The patient states he is doing about the same as he did yesterday with his walking and his physical therapy. He states he is just weak, and his right knee has more pain than the left knee. He also has quite a bit of pain in his shoulders and he also needs see Dr. Guan for his shoulders. Otherwise, he is working hard trying to get stronger, so he can go home. PHYSICAL EXAMINATION: VITAL SIGNS: Reveal blood pressure this morning was 129/60, pulse 68 to 70, respirations 18 to 20, O2 saturation 95% to 97% on room air, and T-max 98.1. GENERAL: This is a well-developed, well-nourished, very pleasant white male, in no apparent distress at this time. HEENT: Reveals normocephalic and nontraumatic cranium. Pupils equally round and reactive. Extraocular movements are intact. Nose and throat are slightly dry. NECK: Supple without masses, nodes, or bruits. CHEST: Clear to auscultation. No rales, rhonchi, or wheezes are heard. HEART: Reveals a regular rate and rhythm without murmurs, gallops, or rubs. ABDOMEN: Soft and nontender without organomegaly. Normal bowel sounds are noted. No rebound or guarding is noted. : Deferred. EXTREMITIES: Reveal no clubbing, cyanosis, or edema. The patient has no complaints except for his right knee pain and he started taking pain medicine and some Voltaren gel. ASSESSMENT: 1. Severe osteoarthritis of both knees, with the right worse than the left. 2. Gel injection in the left knee. 3. Anemia. 4. Parkinson disease. 5. Hypertension. 6. Hyperlipidemia. 7. Restless legs syndrome. 8. History of aspiration pneumonia, and he has finished all of his antibiotics. 9. Generalized weakness. PLAN: 1. Continue to monitor the patient's blood pressure. 2. Continue to monitor the patient for anemia. 3. Continue Parkinson's medications. 4. Continue Voltaren gel 2 to 3 times a day. 5. DVT prophylaxis with PlexiPulse. 6. Decubitus precautions. 7. Stress ulcer prophylaxis. 8. Continue to monitor the patient's labs. 9. Continue to monitor patient's respiratory status. 10. Continue PT and OT. Job ID: [id number]
[2019-01-26] MEDS: Polyethylene Glycol 3350 17 GM Packet PO SCH (12:27)
[2019-01-26] MEDS: Atorvastatin Calcium 40 MG TAB PO SCH (21:21)
[2019-01-26] MEDS: HYDROcodone/Acetaminophen 7.5/325 mg Tablet PO PRN (21:22)
[2019-01-26] MEDS: clonazePAM 1 MG TAB PO SCH (21:23)
[2019-01-27] MEDS: Finasteride 5 MG TAB PO SCH (08:12)
[2019-01-27] MEDS: Diclofenac 1% 100 GM GEL TP SCH ×3 (08:12→23:52)
[2019-01-27] MEDS: Ferrous Sulfate 325 MG TAB PO SCH (08:12)
[2019-01-27] MEDS: Furosemide 40 MG TAB PO SCH (08:13)
[2019-01-27] MEDS: Polyethylene Glycol 3350 17 GM Packet PO SCH (08:13)
[2019-01-27] MEDS: Carbidopa/Levodopa CR 50-200 mg Tablet PO SCH ×2 (08:13→20:53)
[2019-01-27] MEDS: Pramipexole Di-HCl 0.25 MG TAB PO SCH ×2 (08:13→20:54)
[2019-01-27] MEDS: HYDROcodone/Acetaminophen 7.5/325 mg Tablet PO PRN (11:00)
--- NOTE | 2019-01-27 17:24 | PRG ---
DATE OF SERVICE: 01/27/2019 HISTORY OF PRESENT ILLNESS: Mr. Tubbs is a well-developed, slightly obese 83-year-old white male, who went to the emergency room complaining of extreme weakness. He was found to be extremely anemic and had to have 2 units of packed red blood cells. His hemoglobin on admission was 7.3. He was seen by Gastroenterology and had an EGD done, which did not reveal any active bleeding. He also was thought to have an aspiration pneumonia because of leukocytosis. He was treated with IV antibiotics and was switched to oral antibiotics. He is transferred to [facility] for PT and OT to finish his antibiotics. SUBJECTIVE: The patient states he is doing well, and he just got back from Dr. Guan's office and had an injection in his right knee and his right shoulder. He had gel in his right knee and a steroid his right shoulder. He states he feels much better now. He did not do very well on physical therapy and actually only had half of what he did yesterday in physical therapy this morning. OBJECTIVE: VITAL SIGNS: Reveal blood pressure this morning 179/81, pulse 70 to 77, respirations 18 to 20, O2 saturation 97% to 98% on room air, T-max 97.7. GENERAL: On physical exam, this is a well-developed, well-nourished, slightly obese white male, in no apparent distress at this time. HEENT: Normocephalic and nontraumatic cranium. Pupils equal, round, reactive. Extraocular movements are intact. Nose and throat are slightly dry. NECK: Supple without masses, nodes, or bruits. CHEST: Clear to auscultation. No rales, rhonchi, wheezes, or cough is heard. HEART: Reveals a regular rate and rhythm without murmurs, gallops or rubs. ABDOMEN: Soft, nontender without organomegaly. Normal bowel sounds are noted in all 4 quadrants. No rebound or guarding is noted. : Deferred. EXTREMITIES: Reveal no clubbing, cyanosis, or edema. The patient had no complaints except for his right knee and right shoulder. He states since injected, those are feeling better. ASSESSMENT: 1. Severe osteoarthritis, both knees and his right shoulder. 2. Gel injection of the left knee last week and the right knee this week. 3. Anemia. 4. Parkinson disease. 5. Hypertension. 6. Hyperlipidemia. 7. Restless legs syndrome. 8. Aspiration pneumonia and he has finished all his antibiotics. 9. Generalized weakness. PLAN: 1. Continue physical therapy and occupational therapy. 2. Continue to monitor the patient's blood pressure, and we will adjust his medications since it remains high. 3. Continue to monitor the patient for anemia. 4. Continue Parkinson medication. 5. Voltaren gel, we will increase to 4 times a day. 6. DVT prophylaxis with PlexiPulse. 7. Decubitus precautions. 8. Stress ulcer prophylaxis. 9. Continue to monitor the patient's labs. 10. Continue to monitor the patient's respiratory status. Job ID: [id number]
[2019-01-27] MEDS: clonazePAM 1 MG TAB PO SCH (20:52)
[2019-01-27] MEDS: traMADol HCl 50 MG TAB PO PRN (20:53)
[2019-01-27] MEDS: Atorvastatin Calcium 40 MG TAB PO SCH (20:53)
[2019-01-28] MEDS: traMADol HCl 50 MG TAB PO PRN (08:56)
[2019-01-28] MEDS: Furosemide 40 MG TAB PO SCH (08:58)
[2019-01-28] MEDS: Carbidopa/Levodopa CR 50-200 mg Tablet PO SCH ×2 (08:58→20:54)
[2019-01-28] MEDS: Polyethylene Glycol 3350 17 GM Packet PO SCH (08:58)
[2019-01-28] MEDS: Finasteride 5 MG TAB PO SCH (08:58)
[2019-01-28] MEDS: Pramipexole Di-HCl 0.25 MG TAB PO SCH ×2 (08:58→20:56)
[2019-01-28] MEDS: Diclofenac 1% 100 GM GEL TP SCH ×4 (08:59→20:57)
[2019-01-28] MEDS: Ferrous Sulfate 325 MG TAB PO SCH (08:59)
[2019-01-28] MEDS: HYDROcodone/Acetaminophen 7.5/325 mg Tablet PO PRN (20:54)
[2019-01-28] MEDS: Atorvastatin Calcium 40 MG TAB PO SCH (20:56)
[2019-01-28] MEDS: clonazePAM 1 MG TAB PO SCH (20:56)
[2019-01-29] MEDS: Pramipexole Di-HCl 0.25 MG TAB PO SCH ×2 (08:50→20:46)
[2019-01-29] MEDS: Ferrous Sulfate 325 MG TAB PO SCH (08:52)
[2019-01-29] MEDS: Finasteride 5 MG TAB PO SCH (08:53)
[2019-01-29] MEDS: Carbidopa/Levodopa CR 50-200 mg Tablet PO SCH ×2 (08:53→20:46)
[2019-01-29] MEDS: Furosemide 40 MG TAB PO SCH (08:54)
[2019-01-29] MEDS: Polyethylene Glycol 3350 17 GM Packet PO SCH (08:58)
[2019-01-29] MEDS: Diclofenac 1% 100 GM GEL TP SCH ×4 (08:59→20:46)
[2019-01-29] MEDS: traMADol HCl 50 MG TAB PO PRN (09:02)
--- NOTE | 2019-01-29 17:12 | PRG ---
DATE OF SERVICE: 01/29/2019 HISTORY OF PRESENT ILLNESS: Mr. Tubbs is a well-developed, well-nourished, slightly obese 83-year-old white male, who presented himself to the emergency room, complaining of extreme weakness. He was found to be anemic and had to have 2 units of packed red blood cells. His hemoglobin on admission was 7.3. He was seen in consultation by GI and had an EGD done, which did not reveal any active bleeding. He had elevated white count, so it was assumed he may have had an aspiration pneumonia. He was started on IV antibiotics and then soon switched over to oral antibiotics. He was transferred to [facility] for PT and OT to finish his antibiotics. SUBJECTIVE: The patient states he is doing well and walked a lot better today. His is in room and wants to get him a lift chair and some furniture at home that is taller. PHYSICAL EXAMINATION: VITAL SIGNS: Reveal blood pressure 173/72, pulse 66 to 80, respirations 18 to 22, O2 saturation 96% to 97% on room air, T-max 98.0. GENERAL: This is a well-developed, well-nourished, pleasant white male, in no apparent distress at this time. HEENT: Reveals normocephalic and nontraumatic cranium. Pupils are equal, round, and reactive. Extraocular movements are intact. Nose and throat are dry, but clear. NECK: Supple without masses, nodes, or bruits. CHEST: Clear to auscultation. No rales, rhonchi, wheezes, or cough is heard. HEART: Reveals a regular rate and rhythm without murmurs, gallops or rubs. ABDOMEN: Soft, nontender without organomegaly. Normal bowel sounds noted in all 4 quadrants. No rebound or guarding is noted. : Deferred. EXTREMITIES: Reveal no clubbing, cyanosis, or edema. The patient states his right knee, right shoulder, left knee all feel better since the injection. ASSESSMENT: 1. Severe osteoarthritis, both knees and right shoulder. 2. Generalized weakness and debility. 3. Gel injection of left knee last week and the right knee this week. 4. Anemia. 5. Parkinson disease. 6. Hypertension. 7. Hyperlipidemia. 8. Restless legs syndrome. 9. Aspiration pneumonia and he has finished his oral antibiotics. 10. Generalized weakness. PLAN: 1. Continue PT and OT. 2. Continue to monitor the patient's blood pressure closely. 3. Monitor the patient for anemia. 4. Monitor the patient's renal status. 5. Continue Parkinson medications. 6. Voltaren gel four times a day to both knees and shoulders. 7. DVT prophylaxis with PlexiPulse. 8. Decubitus precautions. 9. Stress ulcer prophylaxis. 10. Continue to monitor the patient's labs p.r.n. 11. Monitor the patient's respiratory status. Job ID: [id number]
[2019-01-29] MEDS: Atorvastatin Calcium 40 MG TAB PO SCH (20:46)
[2019-01-29] MEDS: clonazePAM 1 MG TAB PO SCH (20:46)
[2019-01-30] MEDS: Carbidopa/Levodopa CR 50-200 mg Tablet PO SCH ×2 (08:58→20:50)
[2019-01-30] MEDS: Furosemide 40 MG TAB PO SCH (08:58)
[2019-01-30] MEDS: Diclofenac 1% 100 GM GEL TP SCH ×4 (08:58→20:49)
[2019-01-30] MEDS: Ferrous Sulfate 325 MG TAB PO SCH (08:58)
[2019-01-30] MEDS: Polyethylene Glycol 3350 17 GM Packet PO SCH (08:58)
[2019-01-30] MEDS: Finasteride 5 MG TAB PO SCH (08:58)
[2019-01-30] MEDS: Pramipexole Di-HCl 0.25 MG TAB PO SCH ×2 (08:58→20:49)
[2019-01-30] MEDS: clonazePAM 1 MG TAB PO SCH (20:50)
[2019-01-30] MEDS: Atorvastatin Calcium 40 MG TAB PO SCH (20:50)
--- NOTE | 2019-01-31 06:55 | PRG ---
DATE OF SERVICE: 01/30/2019 SUBJECTIVE: The patient is an 83-year-old white male, admitted to the [facility], is care of Dr. Seaman for generalized weakness, inability to maintain ADLs and severe osteoarthritis superimposed on underlying Parkinson's disease. He has had a resolved aspiration pneumonia, but is still very weak and therefore is undergoing physical therapy and appears to be improving. OBJECTIVE: GENERAL: The patient is up walking in the room. VITAL SIGNS: Temperature of 98.5, pulse 72, respirations 20, O2 sats 97% on room air. LUNGS: Clear. CARDIAC: Regular rhythm. ABDOMEN: Soft and nontender. SKIN/EXTREMITIES: No edema, clubbing, or cyanosis. NEUROLOGIC: No focal findings. ASSESSMENT: 1. Continue physical therapy and occupational therapy. 2. Continue to monitor vital signs closely. 3. Continue Parkinson's medicines. 4. Continue Voltaren gel. 5. Continue DVT and stress ulcer prophylaxis. Job ID: [id number]
[2019-01-31] MEDS: Pramipexole Di-HCl 0.25 MG TAB PO SCH ×2 (08:43→20:59)
[2019-01-31] MEDS: Finasteride 5 MG TAB PO SCH (08:43)
[2019-01-31] MEDS: Diclofenac 1% 100 GM GEL TP SCH ×4 (08:43→20:59)
[2019-01-31] MEDS: Furosemide 40 MG TAB PO SCH (08:43)
[2019-01-31] MEDS: Ferrous Sulfate 325 MG TAB PO SCH (08:43)
[2019-01-31] MEDS: Polyethylene Glycol 3350 17 GM Packet PO SCH (08:43)
[2019-01-31] MEDS: Carbidopa/Levodopa CR 50-200 mg Tablet PO SCH ×2 (08:43→21:01)
[2019-01-31] MEDS: clonazePAM 1 MG TAB PO SCH (21:00)
[2019-01-31] MEDS: Atorvastatin Calcium 40 MG TAB PO SCH (21:01)
--- NOTE | 2019-01-31 21:39 | PRG ---
DATE OF SERVICE: 01/31/2019 SUBJECTIVE: The patient feels well, sitting up, visiting with his . Complaining of some mild peripheral edema, but states he is getting much stronger and is walking with therapy and agrees. OBJECTIVE: VITAL SIGNS: Show temperature is 97.6, pulse 74, respirations 20, O2 sats 98% on room air, blood pressure 136/60. LUNGS: Clear. CARDIAC: Shows regular rhythm. ABDOMEN: Soft and nontender. NEUROLOGIC: Shows no focal findings. ASSESSMENT: 1. Stable Parkinson disease. 2. Improving deconditioning. 3. Stable osteoarthritis. 4. Resolved aspiration pneumonia. PLAN: 1. Continue PT/OT. 2. Continue DVT and stress ulcer prophylaxis and stressed the patient need to wear support stocking. 3. Continue Voltaren gel. 4. Continue antiparkinson medications. Job ID: [id number]
[2019-02-01] MEDS: Pramipexole Di-HCl 0.25 MG TAB PO SCH ×2 (08:34→21:00)
[2019-02-01] MEDS: Ferrous Sulfate 325 MG TAB PO SCH (08:35)
[2019-02-01] MEDS: Polyethylene Glycol 3350 17 GM Packet PO SCH (08:35)
[2019-02-01] MEDS: Furosemide 40 MG TAB PO SCH (08:36)
[2019-02-01] MEDS: Carbidopa/Levodopa CR 50-200 mg Tablet PO SCH ×2 (08:36→20:59)
[2019-02-01] MEDS: Finasteride 5 MG TAB PO SCH (08:36)
[2019-02-01] MEDS: Diclofenac 1% 100 GM GEL TP SCH ×4 (08:39→20:59)
[2019-02-01] MEDS: Atorvastatin Calcium 40 MG TAB PO SCH (20:59)
[2019-02-01] MEDS: clonazePAM 1 MG TAB PO SCH (21:00)
--- NOTE | 2019-02-01 21:07 | PRG ---
DATE OF SERVICE: 02/01/2019 Mr. Tubbs is a well-developed, well-nourished, slightly obese, 83-year-old white male. He presented himself to the emergency room with extreme weakness and he was found to be extremely anemic. He had to be admitted to the hospital, was given 2 units of packed red blood cells. His hemoglobin on admission was 7.3. He was seen by GI for EGD consultation. EGD did not reveal any active bleeding. White count was elevated. It was felt that he had an aspiration pneumonia. He was started on IV antibiotics and then soon switched over to oral antibiotics. He was transferred to [facility] for continued antibiotic therapy along with physical therapy and occupational therapy. SUBJECTIVE: The patient states he is doing very well and walking much better, and his over the weekend came and learned a lot about how to care for him. We are hoping that he will be able to be discharged at the end of the week. OBJECTIVE: VITAL SIGNS: Reveal blood pressure 155/68, pulse 62 to 66, respirations 18 to 20, O2 saturation 97% to 98% on room air, T-max 98.0. GENERAL: This is a well-developed, well-nourished, very pleasant, slightly obese white male, in no apparent distress at this time. HEENT: Normocephalic, nontraumatic cranium. Pupils are equal, round, reactive. Extraocular movements are intact. Nose and throat are slightly dry. NECK: Supple without masses, nodes, or bruits. CHEST: Clear to auscultation. No rales, rhonchi, wheezes, or cough is heard. HEART: Reveals a regular rate and rhythm without murmurs, gallops, or rubs. ABDOMEN: Soft, nontender without organomegaly. Normal bowel sounds noted in all 4 quadrants. No rebound or guarding is noted. GENITOURINARY: Deferred. EXTREMITIES: Reveal no clubbing, cyanosis, or edema. The patient states his right knee, right shoulder, left knee all continue to feel a little bit better and he walked better this morning. ASSESSMENT: 1. Severe osteoarthritis, both knees and right shoulder. 2. Generalized weakness and debility. 3. Gel injection of left knee in last week and the right knee in this week. 4. Anemia. 5. Parkinson disease. 6. Hypertension. 7. Hyperlipidemia. 8. Restless legs syndrome. 9. Aspiration pneumonia and he has finished his oral antibiotics. 10. Generalized weakness. PLAN: 1. Continue PT and OT. 2. Plan on discharge late at the end of the week. 3. Continue to monitor the patient's blood pressure closely. Adjust medications as needed. 4. Monitor the patient for anemia. 5. Monitor the patient's renal status. 6. Continue Parkinson's medications. 7. Voltaren gel 4 times daily to both knees and shoulders. 8. DVT prophylaxis with PlexiPulse. 9. Decubitus precautions. 10. Stress ulcer prophylaxis. 11. Continue to monitor the patient's labs p.r.n. 12. Monitor the patient's respiratory status. Job ID: [id number]
[2019-02-02 06:06] LABS: #Basophils 0.1 thou/uL (0.0-0.2); #Eosinphils 0.1 thou/uL (0.0-0.7); #Lymphocytes 1.7 thou/uL (1.20-3.40); #Monocytes 0.8 thou/uL (0.11-0.59); #Neutrophils 5.4 thou/uL (1.40-6.50); %Basophils 0.9 % (0.0-1.0); %Eosinophils 1.1 % (0.0-10.0); %Lymphocytes 21.3 % (21.0-51.0); %Neutrophils 66.8 % (42.0-75.0); Hemoglobin 10.5 g/dL (14.0-18.0); Hypochromia MODERATE=16-30 cells (100X) (0-5/hpf); MDiff Complete? YES; Mean Corpuscular HGB CONC 28.6 g/dL (32.0-36.0); Mean Corpuscular Hemoglobin 22.4 pg (27.0-31.0); Mean Corpuscular Volume 78.3 fL (78.0-98.0); Mean Platelet Volume 8.8 fL (7.4-10.4); Microcytosis SLIGHT = 6-15 cells (100X) (0-5/hpf); Ovalocytes SLIGHT = 2-5 cells (100X) (0-1/hpf); Platelet Count 259 thou/uL (130-400); Platelet Morphology Comment Appears Adequate; RBC Distribution Width 24.3 % (11.5-14.5); Red Blood Cell (RBC) Count 4.71 mill/uL (4.70-6.10); White Blood Cell (WBC) Count 8.1 thou/uL (4.8-10.8)
[2019-02-02 06:14] LABS: ALT (SGPT) Less than 6 U/L (8-55); AST (SGOT) 14 U/L (5-34); Albumin 3.6 g/dL (3.4-4.8); Alkaline Phosphatase 86 U/L (40-150); Anion Gap 13 mmol/L (10-20); BUN (Urea Nitrogen) 18 mg/dL (8.4-25.7); Bilirubin, Total 0.4 mg/dL (0.2-1.2); Calc. Creatinine Clearance 80 mL/min (70-130); Carbon Dioxide 29 mmol/L (23-31); Chloride 101 mmol/L (98-107); Estimated GFR-MDRD 90; Globulin 2.8 g/dL (2.4-3.5); Glucose 99 mg/dL (83-110); Potassium 3.8 mmol/L (3.5-5.1); Protein, Total 6.4 g/dL (5.8-8.1); Sodium 139 mmol/L (136-145)
[2019-02-02] MEDS: Pramipexole Di-HCl 0.25 MG TAB PO SCH ×2 (09:09→20:45)
[2019-02-02] MEDS: Furosemide 40 MG TAB PO SCH (09:09)
[2019-02-02] MEDS: Carbidopa/Levodopa CR 50-200 mg Tablet PO SCH ×2 (09:09→20:45)
[2019-02-02] MEDS: Finasteride 5 MG TAB PO SCH (09:09)
[2019-02-02] MEDS: Polyethylene Glycol 3350 17 GM Packet PO SCH (09:09)
[2019-02-02] MEDS: Ferrous Sulfate 325 MG TAB PO SCH (09:09)
[2019-02-02] MEDS: Diclofenac 1% 100 GM GEL TP SCH ×4 (09:12→20:45)
[2019-02-02] MEDS: traMADol HCl 50 MG TAB PO PRN (09:29)
--- NOTE | 2019-02-02 14:19 | PRG ---
DATE OF SERVICE: 02/02/2019 SUBJECTIVE: The patient is a very pleasant 83-year-old white male, who presented to the emergency room with extreme weakness. He was found to have a hemoglobin of 7.3, was extremely anemic and was given 2 units of packed red blood cells. He was seen in consultation by GI and had an EGD done, which did not reveal any active bleeding. His white count was elevated and thought to have had an aspiration pneumonia, so he was started on IV antibiotics and then switched to oral antibiotics. He was transferred to [facility] for continued antibiotic therapy along with physical therapy and occupational therapy. The patient states he is doing well. Would like to go home today, but he thinks his 's plan is to go home on or Friday. OBJECTIVE: VITAL SIGNS: Today, blood pressure elevated this morning at 181/83, Respirations 18 to 20, O2 saturation 97% to 98% on room air, T-max 97.5. GENERAL: This is a well-developed, well-nourished, very pleasant, elderly white male, in no apparent distress at this time. HEENT: Normocephalic and nontraumatic cranium. Pupils are equal, round, and reactive. Extraocular movements are intact. Nose and throat are slightly dry, but clear. NECK: Supple without masses, nodes, or bruits. CHEST: Clear to auscultation. No rales, rhonchi, wheezes, or cough noted. HEART: Regular rate and rhythm without murmurs, gallops, or rubs. ABDOMEN: Soft, nontender, slightly obese. No organomegaly is noted. Normal bowel sounds are noted in all 4 quadrants. No rebound or guarding is noted. : Deferred. EXTREMITIES: No clubbing, cyanosis, or edema. The patient states his right knee, right shoulder, and left knee, all continue to have some arthritic pain. ASSESSMENT: 1. Severe osteoarthritis of both knees and right shoulder. 2. Generalized weakness. 3. Recent history of gel injection in both right and left knees and was steroids injected. 4. Anemia. 5. Parkinson disease. 6. Hypertension. 7. Hyperlipidemia. 8. Restless legs syndrome. 9. Aspiration pneumonia, now resolved. 10. Generalized weakness. PLAN: 1. Continue PT and OT. 2. Discharge plans for end of the week. 3. Continue monitor the patient's blood pressure and adjust medications as needed. 4. Monitor patient for edema. 5. Monitor the patient's renal status. 6. Continue the patient's present Parkinson's medications. 7. Voltaren gel 4 times a day to both knees and shoulders. 8. DVT prophylaxis with PlexiPulse. 9. Decubitus precautions. 10. Stress ulcer prophylaxis. 11. Continue monitor the patient's labs p.r.n. 12. Monitor the patient's respiratory status. Job ID: [id number] MTDD
[2019-02-02] MEDS: clonazePAM 1 MG TAB PO SCH (20:45)
[2019-02-02] MEDS: Atorvastatin Calcium 40 MG TAB PO SCH (20:45)
[2019-02-03] MEDS: Diclofenac 1% 100 GM GEL TP SCH ×4 (08:07→21:23)
[2019-02-03] MEDS: Polyethylene Glycol 3350 17 GM Packet PO SCH (08:07)
[2019-02-03] MEDS: Ferrous Sulfate 325 MG TAB PO SCH (08:08)
[2019-02-03] MEDS: Furosemide 40 MG TAB PO SCH (08:08)
[2019-02-03] MEDS: Pramipexole Di-HCl 0.25 MG TAB PO SCH ×2 (08:09→21:21)
[2019-02-03] MEDS: Carbidopa/Levodopa CR 50-200 mg Tablet PO SCH ×2 (08:09→21:23)
[2019-02-03] MEDS: Finasteride 5 MG TAB PO SCH (08:09)
--- NOTE | 2019-02-03 18:21 | PRG ---
DATE OF SERVICE: 02/03/2019 SUBJECTIVE: Mr. Tubbs is a very pleasant 83-year-old white male, who presented to the emergency room with extreme weakness. He was found to have a hemoglobin of 7.3 and was extremely anemic. He was given 2 units of packed red blood cells. He was seen in consultation by GI and had an EGD done. EGD did not reveal any active bleeding. His white count was also elevated and he was thought to have an aspiration pneumonia. He was started on IV antibiotics and switched to oral antibiotics. He was transferred to [facility] for continued physical therapy and occupational therapy and to finish his oral antibiotics. The patient's is in the room. We did discuss him going home and they would prefer to go home tomorrow after lunch. She has help available and has someone to help her. She has someone to help change his shower stall out and put up some handicap bars. He would also like to go home tomorrow. OBJECTIVE: VITAL SIGNS: Today reveal blood pressure 144/65 last night, pulse 64 to 81, respirations 18 to 20, O2 saturation 98% on room air, T-max 97.7. GENERAL: On physical examination, this is a well-developed, well-nourished, very pleasant white male, in no apparent distress at this time. HEENT: Reveals normocephalic and nontraumatic cranium. Pupils are equally round, reactive. Extraocular movements are intact. Nose and throat are slightly dry. NECK: Supple without masses, nodes, or bruits. CHEST: Clear to auscultation. No rales, rhonchi, or wheezes are heard. HEART: Reveals a regular rate and rhythm without murmurs, gallops, or rubs. ABDOMEN: Soft, nontender without organomegaly. Normal bowel sounds are noted. No rebound or guarding is noted. : Exam is deferred. EXTREMITIES: Reveal no clubbing, cyanosis, or edema. The patient states his right knee and left knee are better. He states his shoulders still bother him some. He has multiple questions about whether he could have surgery to walk and I have told him he would have to address that with his orthopedist. ASSESSMENT: 1. Severe osteoarthritis, both knees and right shoulder. 2. Generalized weakness. 3. Recent history of gel injection in both right and left knees and steroids injected. 4. Anemia. 5. Parkinson disease. 6. Hypertension. 7. Hyperlipidemia. 8. Restless legs syndrome. 9. Aspiration pneumonia, now resolved. PLAN: 1. Discharged tomorrow. 2. Continue to monitor the patient's blood pressure and adjust medications as needed. 3. Monitor the patient's edema. 4. Monitor the patient's renal status. 5. Continue the patient's present Parkinson's medicines. 6. Voltaren gel four times a day, both knees and shoulders. 7. DVT prophylaxis with PlexiPulses. 8. Decubitus precautions. 9. Stress ulcer prophylaxis. 10. Continue physical therapy in home. Job ID: [id number]
[2019-02-03] MEDS: traMADol HCl 50 MG TAB PO PRN (21:22)
[2019-02-03] MEDS: Atorvastatin Calcium 40 MG TAB PO SCH (21:22)
[2019-02-03] MEDS: clonazePAM 1 MG TAB PO SCH (21:23)
[2019-02-04 07:38] VITALS: BP 145/70; TEMP 97.6
[2019-02-04] MEDS: Diclofenac 1% 100 GM GEL TP SCH ×2 (08:26→12:49)
[2019-02-04] MEDS: Polyethylene Glycol 3350 17 GM Packet PO SCH (08:26)
[2019-02-04] MEDS: Pramipexole Di-HCl 0.25 MG TAB PO SCH (08:27)
[2019-02-04] MEDS: Ferrous Sulfate 325 MG TAB PO SCH (08:28)
[2019-02-04] MEDS: Carbidopa/Levodopa CR 50-200 mg Tablet PO SCH (08:28)
[2019-02-04] MEDS: Finasteride 5 MG TAB PO SCH (08:28)
[2019-02-04] MEDS: Furosemide 40 MG TAB PO SCH (08:28)
[2019-02-04] MEDS: HYDROcodone/Acetaminophen 7.5/325 mg Tablet PO PRN (08:34)
[2019-02-04] MEDS: traMADol HCl 50 MG TAB PO PRN (12:48)
--- NOTE | 2019-02-04 13:19 | DIS ---
DATE OF ADMISSION: 01/02/2019 DATE OF DISCHARGE: 02/04/2019 HOSPITAL COURSE: Mr. Tubbs is a very pleasant 83-year-old white male, who presented to the emergency room with extreme weakness. He was found to have a hemoglobin of 7.3 and had to be given 2 units of packed red blood cells. He was seen in consultation by GI and had an EGD done. That did not reveal any active bleeding. His white count was elevated, and he was thought to have an aspiration pneumonia. He was started on IV antibiotics and eventually switched to oral antibiotics. He was transferred to [facility] for physical therapy and occupational therapy and to finish his antibiotics. The patient has been here a little bit over a month and is actually much improved, but is pretty much plateaued out with his therapy. He is walking. He did go see Dr. Guan and had both steroid injections in both knees and both shoulders and gel injections in both of his knees. He states that it does help and he can get the steroids every 3 months, but the gel has to be every 6 months. He states he feels much better, he is able to get up and move by himself. His did come in and learn how to get him up and down and how to assist him. Yesterday, he walked 250 feet. Gait is slow as his balance is decreased, and his strength is not decreased, but actually he is doing much better because when he first got here he could barely stand. It was felt that he is ready for discharge. PHYSICAL EXAMINATION: VITAL SIGNS: Reveal blood pressure 145/70, pulse 64, respirations 18 to 20, T-max 97.6, and O2 saturation 97% to 99% on room air. GENERAL: This is a well-developed, well-nourished, very pleasant 83-year-old white male. HEENT: Reveals normocephalic and nontraumatic cranium. Pupils are equal, round, and reactive. Extraocular movements are intact. Nose and throat are moist. NECK: Supple without masses, nodes, or bruits. CHEST: Clear to auscultation. No rales, no rhonchi, no wheezes, and no cough is heard. HEART: Reveals a regular rate and rhythm without murmurs, gallops, or rubs. ABDOMEN: Soft and nontender without organomegaly. Normal bowel sounds are noted in all 4 quadrants. No rebound or guarding is noted. : Deferred. EXTREMITIES: Reveal no clubbing or cyanosis with trace edema. The patient states his knees are better and shoulders are better, and he is ready to go home. His is supposed to pick him up right after lunch today, with therapy helping him into the car. DISCHARGE MEDICATIONS: Include the following, the patient will be on the same home medications, which include: 1. Acetaminophen p.r.n. pain. 2. Atorvastatin 40 mg at bedtime. 3. Carbidopa/levodopa 50/200 b.i.d. 4. Ferrous sulfate, which is iron, once a day. 5. Furosemide 40 mg daily. 6. Proscar (finasteride) 5 mg daily. 7. MiraLAX 17 g daily p.r.n. 8. Protonix 40 mg at bedtime. 9. Mirapex (pramipexole) 0.5 mg twice a day. 10. Clonazepam 0.5 mg, he takes three pills or 1.5 mg every bedtime. The patient states the diclofenac or Voltaren gel did not seem to be helping very much and so he is not interested in getting that and taking that at home. ASSESSMENT: 1. Severe osteoarthritis, both knees and right shoulder. 2. Generalized weakness. 3. Recent history of bilateral knees being injected with both gel and steroids. 4. Anemia, improved. 5. Parkinson disease. 6. Hypertension. 7. Hyperlipidemia. 8. Restless legs syndrome. 9. Aspiration pneumonia. PLAN: 1. The patient will be discharged today after lunch. 2. Continue physical therapy and occupational therapy twice a week with home health. 3. Continue to monitor the patient for edema. 4. Continue to monitor the patient's renal status. 5. Continue present Parkinson drugs. 6. We will not fill the patient's Voltaren gel. 7. Decubitus precautions. 8. Stress ulcer prophylaxis. 9. Follow up with me in 1 to 2 weeks. I spent greater than 40 minutes with the patient, his , and preparing him for discharge. Job ID: [id number]
== END 2019-02-04 13:00 | disposition home health service (06) | DRG 179 ==
LOC: NAV ACUTE 18:10
PROVIDERS: ADMIT Internal Medicine; ATTEND Internal Medicine
DX: J69.0 Pneumonitis due to inhalation of food and vomit (principal); D64.9 Anemia, unspecified; G20 Parkinson's disease; I10 Essential (primary) hypertension; E78.5 Hyperlipidemia, unspecified; G25.81 Restless legs syndrome; R53.81 Other malaise; R53.1 Weakness; M19.011 Primary osteoarthritis, right shoulder; M17.0 Bilateral primary osteoarthritis of knee; Z98.49 Cataract extraction status, unspecified eye; Z79.899 Other long term (current) drug therapy
CPT/HCPCS: 36415; 80048; 80053; 83880; 84134; 85025

== ENCOUNTER 2019-08-15 10:12 | Emergency (ER) | payer MEDICARE, OTHER ==
[2019-08-15 10:31] LABS: #Eosinphils 0.1 thou/uL (0.0-0.7); #Lymphocytes 1.5 thou/uL (1.20-3.40); #Monocytes 0.8 thou/uL (0.11-0.59); #Neutrophils 6.7 thou/uL (1.40-6.50); %Basophils 0.4 % (0.0-1.0); %Eosinophils 1.2 % (0.0-10.0); %Lymphocytes 16.4 % (21.0-51.0); Hemoglobin 11.4 g/dL (14.0-18.0); Mean Corpuscular HGB CONC 30.2 g/dL (32.0-36.0); Mean Corpuscular Hemoglobin 28.6 pg (27.0-31.0); Mean Corpuscular Volume 94.5 fL (78.0-98.0); Platelet Count 210 thou/uL (130-400); RBC Distribution Width 14.1 % (11.5-14.5); White Blood Cell (WBC) Count 9.1 thou/uL (4.8-10.8)
[2019-08-15 10:34] LABS: PTT 29.7 SEC (22.9-36.1); Prothrombin Time 13.2 SEC (12.0-14.7)
--- NOTE | 2019-08-15 10:36 | CT ---
Head CT without contrast 08/15/2019: COMPARISON: 12/28/2018 HISTORY: Facial droop with numbness TECHNIQUE: Axial CT imaging at 5 mm intervals from vertex through skull base without contrast FINDINGS: Imaged paranasal sinuses/mastoid air cells demonstrate mild mucosal thickening of alveolar recess right maxillary sinus. No displaced calvarial fracture. No intracranial hemorrhage, midline shift, or mass effect. There is a new linear hyperdensity along the course of the distal M1 segment a nd proximal M2 on the left which suggests acute arterial thrombus. IMPRESSION: Hyperdense M1 sign on the left concerning for acute intra-arterial thrombus. Neurosurgic al consultation and CTA recommended. Dr. Watkins made aware 10:29 AM 08/15/2019
[2019-08-15 10:41] LABS: ALT (SGPT) Less than 6 U/L (8-55); AST (SGOT) 18 U/L (5-34); Albumin 3.9 g/dL (3.4-4.8); Alkaline Phosphatase 77 U/L (40-110); Anion Gap 14 mmol/L (10-20); BUN (Urea Nitrogen) 16 mg/dL (8.4-25.7); Bilirubin, Total 0.5 mg/dL (0.2-1.2); Calc. Creatinine Clearance 0 mL/min (70-130); Calcium 8.9 mg/dL (7.8-10.44); Carbon Dioxide 27 mmol/L (23-31); Chloride 103 mmol/L (98-107); Estimated GFR-MDRD 77; Globulin 2.6 g/dL (2.4-3.5); Glucose 99 mg/dL (83-110); Potassium 3.6 mmol/L (3.5-5.1); Protein, Total 6.5 g/dL (5.8-8.1); Sodium 140 mmol/L (136-145)
[2019-08-15 10:42] LABS: Alcohol Less than 10 mg/dL (Less than 10); CKMB 4.2 ng/mL (0-6.6); Troponin I Less than 0.010 ng/mL (< 0.028)
--- NOTE | 2019-08-15 11:22 | RAD ---
EXAM: Single view of the chest HISTORY: CVA COMPARISON: 12/28/2018 FINDINGS: Single view of the chest shows an enlarged but stable cardiomediastinal silhouette. There i s no evidence of consolidation, mass, or pleural effusion. The patient is status post left shoulder arthroplasty. IMPRESSION: No evidence of acute cardiopulmonary disease
== END 2019-08-15 12:07 | disposition short-term general hospital (02) ==
LOC: NAV ERS 10:12
DX: I63.9 Cerebral infarction, unspecified (principal); S41.111A Laceration without foreign body of right upper arm, initial encounter; E78.5 Hyperlipidemia, unspecified; M19.90 Unspecified osteoarthritis, unspecified site; E78.00 Pure hypercholesterolemia, unspecified; R41.3 Other amnesia; I10 Essential (primary) hypertension; G20 Parkinson's disease; Z87.891 Personal history of nicotine dependence; Z79.899 Other long term (current) drug therapy; X58.XXXA Exposure to other specified factors, initial encounter
CPT/HCPCS: 70450; 71045; 80053; 80307; 82553; 84484; 85025; 85610; 85730; 93005; 94760; J2997; 96374; 99292

== ENCOUNTER 2019-08-18 18:15 | Inpatient (IN) | payer MEDICARE, OTHER ==
[2019-08-18] MEDS ORDERED: Acetaminophen 325 MG TAB PO PRN (18:53)
[2019-08-18] MEDS ORDERED: Polyethylene Glycol 3350 17 GM Packet PO PRN (18:53)
[2019-08-18] MEDS ORDERED: Bisacodyl 10 MG SUPP PR PRN (19:06)
[2019-08-18] MEDS ORDERED: Ondansetron ODT 4 MG TAB PO PRN (19:06)
[2019-08-18] MEDS ORDERED: Loperamide HCl 2 MG CAP PO PRN (19:06)
[2019-08-18] MEDS: Pramipexole Di-HCl 0.25 MG TAB PO SCH (21:26)
[2019-08-18] MEDS: Finasteride 5 MG TAB PO SCH (21:26)
[2019-08-18] MEDS: Atorvastatin Calcium 40 MG TAB PO SCH (21:27)
[2019-08-18] MEDS: Carbidopa/Levodopa CR 50-200 mg Tablet PO SCH (21:27)
[2019-08-18] MEDS: Apixaban 5 MG TAB PO SCH (21:27)
[2019-08-19 05:43] LABS: #Eosinphils 0.3 thou/uL (0.0-0.7); #Lymphocytes 1.5 thou/uL (1.20-3.40); #Monocytes 0.6 thou/uL (0.11-0.59); #Neutrophils 4.4 thou/uL (1.40-6.50); %Basophils 0.5 % (0.0-1.0); %Lymphocytes 21.9 % (21.0-51.0); %Monocytes 8.4 % (0.0-10.0); %Neutrophils 64.1 % (42.0-75.0); Hemoglobin 8.7 g/dL (14.0-18.0); Mean Corpuscular Hemoglobin 28.6 pg (27.0-31.0); Mean Corpuscular Volume 92.3 fL (78.0-98.0); Mean Platelet Volume 7.8 fL (7.4-10.4); Platelet Count 152 thou/uL (130-400); RBC Distribution Width 13.7 % (11.5-14.5); Red Blood Cell (RBC) Count 3.03 mill/uL (4.70-6.10); White Blood Cell (WBC) Count 6.8 thou/uL (4.8-10.8)
[2019-08-19 05:49] LABS: Bilirubin Negative (Negative); Blood, Urine Moderate (Negative); Clarity Clear (Clear); Glucose, Urine (Dipstick) Negative (Negative); Leukocyte Negative (Negative); Nitrite Negative (Negative); Protein, Urine (Dipstick) Negative (Neg-Trace); Urobilinogen 0.2 mg/dL (Less than 2)
[2019-08-19 05:50] LABS: Bacteria/HPF None Seen HPF (None Seen); Squamous Epithelial 0-3 HPF (0-3); WBC/HPF None Seen HPF (0-3)
[2019-08-19 06:04] LABS: ALT (SGPT) Less than 6 U/L (8-55); AST (SGOT) 16 U/L (5-34); Albumin 3.5 g/dL (3.4-4.8); Alkaline Phosphatase 74 U/L (40-110); Anion Gap 12 mmol/L (10-20); BUN (Urea Nitrogen) 16 mg/dL (8.4-25.7); Calc. Creatinine Clearance 83 mL/min (70-130); Carbon Dioxide 27 mmol/L (23-31); Cardiac Risk 2.3 (Less than 4.5); Chloride 105 mmol/L (98-107); Cholesterol 122 mg/dl (< 200 Desired); Estimated GFR-MDRD Greater than 90; Globulin 2.4 g/dL (2.4-3.5); Glucose 91 mg/dL (83-110); HDL Cholesterol 53 mg/dL (>60 Neg Risk); LDL Cholesterol, Calculated 57 mg/dL; Protein, Total 5.9 g/dL (5.8-8.1); Sodium 140 mmol/L (136-145); Triglycerides 60 mg/dL (Less than 150)
--- NOTE | 2019-08-19 07:20 | HP ---
HISTORY OF PRESENT ILLNESS: Mr. Tubbs is a very pleasant 84-year-old white male, who was found by his on 08/15/2019, early in the morning in his recliner trying to get out of bed. He was brought immediately to the emergency room because she thought he had a stroke and he was life flighted to [facility] in [place]. While he was there, he had a left middle cerebral artery inferior division M2 branch occlusion, which was re-vascularized with a 3 mm stent. He had a distal M4 segment MCA branch occlusion 3+ noted, but was not treated. He did receive tPA at the [facility] in [place] prior to being life flighted. Postoperatively, he has actually done very well, he is stabilized, now transferred to [facility] for physical therapy, occupational therapy, and speech therapy. PAST MEDICAL HISTORY: Significant for, 1. Coronary angioplasty with stent placement. 2. Parkinson disease followed by Dr. Hernandez. 3. Hypertension, followed by Dr. Agudelo. 4. Anemia. 5. BPH, followed by Dr. Strauss. 6. Senile cataracts, followed by Dr. Velázquez. 7. Vitamin D deficiency. 8. Hyperlipidemia. 9. 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 PAST SURGICAL HISTORY: 1. The patient has had throat surgery. 2. EGD done by Dr. Brasher in 1992. 3. Upper GI endoscopy in 2001. 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 5. Colonoscopy with snare polypectomy in 2003. 6. Cataracts removed in 2009. 7. Shoulder surgery in [address] Guan. 8. Knee injections by Dr. Devang Acuña in 2016. FAMILY HISTORY: The patient's father at age 65 of lung cancer. The patient's mother , but unknown family history. The patient had one brother who of a MVA; one of liver failure, hepatitis C; one of leukemia; and four brothers are still living. The patient has two sisters. The patient had a grandmother who at age 60 of a stroke. Family history is positive for heart disease, kidney disease, cancer, and stroke. SOCIAL HISTORY: Reveals the patient is a former smoker and quit smoking in 1972. He smoked a pack a day for many years and for a while, he drank two beers a day for several days and mixed drinks at night. Has no drug history. PRESENT MEDICATIONS: Reveal he is presently on the following, 1. Apixaban 5 mg b.i.d. 2. Atorvastatin 40 mg at bedtime. 3. Carbidopa levodopa two tabs twice a day. 4. Proscar mg at bedtime. 5. Furosemide (Lasix) 40 mg daily. 6. Lidocaine patch daily. 7. Pantoprazole 40 mg at bedtime. 8. Pramipexole 1 mg twice a day for restless legs syndrome. 9. Polyethylene glycol p.r.n. for constipation. ALLERGIES: THE PATIENT HAS NO KNOWN DRUG ALLERGIES. REVIEW OF SYSTEMS: Reveal the patient denies any chills, fevers, night sweats, or headaches. The patient is somewhat hard of hearing, but eyesight is fair. The patient denies any cough, cold, congestion, or respiratory problems. The patient denies any chest pain, palpitations, racing, slow heartbeat, dyspnea on exertion, orthopnea, or claudication. The patient denies any change in bowel habits, nausea, vomiting, diarrhea, constipation, melena, or black or bloody stools. Denies any dysphagia. The patient did pass a modified barium swallow. The patient denies nocturia, urgency, frequency, dysuria, or incontinence. The patient does have generalized weakness. He does have significant arthritis in both of his knees and in both of his shoulders, but is unfortunately not a surgical candidate. The patient denies any skin rashes. He does have significant bruising from his tPA. The patient denies polydipsia, polyphagia, or polyuria. PHYSICAL EXAMINATION: GENERAL: This is a well-developed, well-nourished, pleasant white male, who has difficulty with his speech and choosing his words. He has no significant dysphagia. He has some generalized weakness. HEENT: Reveals normocephalic and nontraumatic cranium. Pupils are equally round and reactive. Extraocular movements are intact. Nose and throat are clear. The patient has significant bruising on the left side around his neck, especially. NECK: Supple without masses, nodes, or bruits. HEART: Reveals an irregular rate of atrial fibrillation. No murmurs, gallops, or rubs are noted. CHEST: Clear to auscultation. No rales, rhonchi, wheezes, or cough is noted. ABDOMEN: Soft, nondistended. Normal bowel sounds in all 4 quadrants. No masses, nodes, or bruits are noted. No CVS tenderness is noted. : Deferred. EXTREMITIES: Reveal no clubbing, cyanosis, with +1 edema at this time. NEUROLOGIC: The patient has generalized weakness. He has responded very well to his tPA and to his revascularization of the left middle cerebral artery. ASSESSMENT: 1. Cerebrovascular accident. 2. Atrial fibrillation. 3. Coronary artery disease. 4. Hypertension. 5. Parkinson disease. 6. Anemia. 7. BPH. 8. Hyperlipidemia. 9. 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 PLAN: 1. The patient is admitted to the hospital. 2. Continue present medications as noted above. 3. Monitor the patient's blood pressure closely. 4. Continue the patient's Parkinson's medication. 5. Continue to monitor the patient for anemia. 6. Stress ulcer prophylaxis. 7. Decubitus precautions. 8. DVT prophylaxis with apixaban. 9. Physical therapy and occupational therapy. 10. Speech therapy. Job ID: [id number]
[2019-08-19] MEDS: Carbidopa/Levodopa CR 50-200 mg Tablet PO SCH ×2 (08:29→21:52)
[2019-08-19] MEDS: Furosemide 40 MG TAB PO SCH (08:29)
[2019-08-19] MEDS: Cyanocobalamin (Vitamin B-12) 1,000 MCG TAB PO SCH (08:29)
[2019-08-19] MEDS: Apixaban 5 MG TAB PO SCH ×2 (08:29→21:54)
[2019-08-19] MEDS: Lidocaine 5% Patch TD SCH (08:30)
[2019-08-19] MEDS: Pramipexole Di-HCl 0.25 MG TAB PO SCH ×3 (08:31→22:17)
[2019-08-19] MEDS ORDERED: cloNIDine 0.1 MG TAB PO PRN (12:45)
--- NOTE | 2019-08-19 21:12 | PRG ---
DATE OF SERVICE: 08/19/2019 SUBJECTIVE: Mr. Tubbs is a pleasant 84-year-old white male, found by his on 08/15/2019 with significant right-sided weakness. He was found to have a left middle cerebral artery inferior division M2 branch occlusion. He was given tPA, life flighted down to [facility] in [place] and had that the area revascularized with a 3-mm stent. He was stabilized and now was transferred back to [facility] for PT, OT, and speech therapy. The patient states he did well yesterday and walked quite a bit. He states his major problem is getting up, getting down, and his balance. He is very weak and needs help with standing, sitting, etc. OBJECTIVE: VITAL SIGNS: Today reveal blood pressure slightly elevated 161/72, pulse 64, respirations 20, O2 saturation 99%. Followup blood pressure was 139/67. GENERAL: This is a well-developed, well-nourished, pleasant white male who remembers me as his primary care doctor. He does have some dementia and has difficulty remembering things. HEENT: Reveals normocephalic and nontraumatic cranium. The pupils are equally round, reactive. Extraocular movements are intact. Nose and throat are clear, but dry. NECK: Supple without masses, nodes, or bruits. CHEST: Clear to auscultation. No rales, rhonchi, wheezes, or cough was noted. HEART: Reveals an irregular rate of atrial fibrillation. No murmurs, gallops, or rubs were noted. ABDOMEN: Soft, nontender without organomegaly. Normal bowel sounds were noted. No rebound or guarding was noted. : Deferred. EXTREMITIES: Reveal no clubbing, cyanosis, with about 1+ edema. NEUROLOGIC: The patient has generalized weakness. He has responded very well to his tPA and revascularization of the left middle cerebral artery. ASSESSMENT: 1. Left middle cerebral artery cerebrovascular accident. 2. Atrial fibrillation. 3. Coronary artery disease. 4. Hypertension. 5. Parkinson disease. 6. Anemia. 7. Benign prostatic hypertrophy. 8. Hyperlipidemia. 9. Diastolic dysfunction, grade 2/3. 10. Generalized weakness. PLAN: 1. Continue present medications. 2. Continue to monitor the patient's blood pressure closely. 3. Monitor the patient's atrial fibrillation for RVR. 4. Continue present Parkinson medications. 5. Monitor the patient for anemia. 6. Monitor the patient for renal occlusion or urinary retention. 7. Decubitus precautions. 8. Stress ulcer prophylaxis. 9. DVT prophylaxis with apixaban. 10. Continue physical therapy and occupational therapy. 11. Continue speech therapy. Job ID: [id number]
[2019-08-19] MEDS ORDERED: Pramipexole Di-HCl 0.25 MG TAB PO SCH (21:45)
[2019-08-19] MEDS: Finasteride 5 MG TAB PO SCH (21:52)
[2019-08-19] MEDS: Atorvastatin Calcium 40 MG TAB PO SCH (21:54)
[2019-08-19] MEDS: Lidocaine Patch Removal 1 EACH TOP SCH (21:55)
[2019-08-20] MEDS: Cyanocobalamin (Vitamin B-12) 1,000 MCG TAB PO SCH (10:12)
[2019-08-20] MEDS: Apixaban 5 MG TAB PO SCH ×2 (10:12→22:02)
[2019-08-20] MEDS: Pramipexole Di-HCl 0.25 MG TAB PO SCH ×2 (10:12→22:00)
[2019-08-20] MEDS: Carbidopa/Levodopa CR 50-200 mg Tablet PO SCH ×2 (10:12→22:02)
[2019-08-20] MEDS: Furosemide 40 MG TAB PO SCH (10:13)
[2019-08-20] MEDS: Lidocaine 5% Patch TD SCH (10:13)
[2019-08-20] MEDS: Finasteride 5 MG TAB PO SCH (22:01)
[2019-08-20] MEDS: Atorvastatin Calcium 40 MG TAB PO SCH (22:02)
[2019-08-20] MEDS: Lidocaine Patch Removal 1 EACH TOP SCH (22:19)
[2019-08-21] MEDS: Pramipexole Di-HCl 0.25 MG TAB PO SCH ×2 (08:50→20:27)
[2019-08-21] MEDS: Carbidopa/Levodopa CR 50-200 mg Tablet PO SCH ×2 (08:50→20:26)
[2019-08-21] MEDS: Apixaban 5 MG TAB PO SCH ×2 (08:51→20:26)
[2019-08-21] MEDS: Lidocaine 5% Patch TD SCH (08:52)
[2019-08-21] MEDS: Cyanocobalamin (Vitamin B-12) 1,000 MCG TAB PO SCH (08:52)
[2019-08-21] MEDS: Furosemide 40 MG TAB PO SCH (08:52)
--- NOTE | 2019-08-21 09:35 | PRG ---
DATE OF SERVICE: 08/21/[address] Johana Seaman. SUBJECTIVE: The patient lying in bed. No complaints, slightly confused, but in no distress. Apparently, however, he was confused during the night and attempted to climb out of bed. OBJECTIVE: VITAL SIGNS: Show within normal limits. Therefore, chronic anemia with a hemoglobin of significant change in his hemoglobin from 4 days previously, unsure whether this is due to an ongoing bleed or he is stable and we will repeat again today. ABDOMEN: Soft and nontender. LUNGS: Clear. CARDIAC: Showed regular rhythm. ASSESSMENT: 1. Resolving cerebrovascular accident with main debility of confusion mainly at night, but with improving right-sided weakness. 2. History of atrial fibrillation and recent thrombolysis on apixaban, appears to be improving. 3. New onset of significant anemia with no evidence of significant GI bleed, although does have history of polyp in 2003. PLAN: Repeat CBC today. Obtain stool occult blood. Continue apixaban. Continue to monitor closely for fall risk. Continue Parkinson's therapy per instructions of Dr. Hernandez. Continue to monitor vital signs closely. Job ID: [id number]
[2019-08-21 10:39] LABS: #Eosinphils 0.2 thou/uL (0.0-0.7); #Lymphocytes 1.2 thou/uL (1.20-3.40); #Monocytes 0.6 thou/uL (0.11-0.59); #Neutrophils 3.7 thou/uL (1.40-6.50); %Basophils 0.8 % (0.0-1.0); %Eosinophils 3.4 % (0.0-10.0); %Lymphocytes 20.8 % (21.0-51.0); %Monocytes 10.7 % (0.0-10.0); %Neutrophils 64.4 % (42.0-75.0); Hemoglobin 9.7 g/dL (14.0-18.0); Mean Corpuscular HGB CONC 31.9 g/dL (32.0-36.0); Mean Corpuscular Hemoglobin 29.6 pg (27.0-31.0); Mean Corpuscular Volume 92.9 fL (78.0-98.0); Mean Platelet Volume 7.4 fL (7.4-10.4); Platelet Count 184 thou/uL (130-400); RBC Distribution Width 13.7 % (11.5-14.5); Red Blood Cell (RBC) Count 3.27 mill/uL (4.70-6.10); White Blood Cell (WBC) Count 5.8 thou/uL (4.8-10.8)
[2019-08-21 11:01] LABS: Anion Gap 16 mmol/L (10-20); BUN (Urea Nitrogen) 17 mg/dL (8.4-25.7); Calc. Creatinine Clearance 76 mL/min (70-130); Calcium 8.8 mg/dL (7.8-10.44); Carbon Dioxide 24 mmol/L (23-31); Chloride 102 mmol/L (98-107); Estimated GFR-MDRD 86; Glucose 103 mg/dL (83-110); Potassium 3.5 mmol/L (3.5-5.1); Sodium 138 mmol/L (136-145)
[2019-08-21] MEDS ORDERED: Magnesium Citrate 300 ML BOT PO SCH (17:00)
[2019-08-21] MEDS: Finasteride 5 MG TAB PO SCH (20:26)
[2019-08-21] MEDS: Atorvastatin Calcium 40 MG TAB PO SCH (20:26)
[2019-08-21] MEDS: Lidocaine Patch Removal 1 EACH TOP SCH (20:26)
[2019-08-22 05:30] LABS: Hemoglobin 9.2 g/dL (14.0-18.0); Platelet Count 215 thou/uL (130-400)
[2019-08-22] MEDS: Carbidopa/Levodopa CR 50-200 mg Tablet PO SCH ×2 (09:55→21:24)
[2019-08-22] MEDS: Cyanocobalamin (Vitamin B-12) 1,000 MCG TAB PO SCH (09:55)
[2019-08-22] MEDS: Pramipexole Di-HCl 0.25 MG TAB PO SCH ×2 (09:55→21:24)
[2019-08-22] MEDS: Furosemide 40 MG TAB PO SCH (09:55)
[2019-08-22] MEDS: Apixaban 5 MG TAB PO SCH ×2 (09:55→21:24)
[2019-08-22] MEDS: Lidocaine 5% Patch TD SCH (09:55)
--- NOTE | 2019-08-22 20:31 | PRG ---
DATE OF SERVICE: 08/22/[address] Seaman. SUBJECTIVE: The patient is awake and alert, lying in bed, somewhat confused, but appears to be in no distress. OBJECTIVE: NEUROLOGICAL: Right-sided weakness, but improving. LUNGS: Clear. CARDIAC: Irregularly irregular rhythm. ABDOMEN: Soft and nontender. SKIN/EXTREMITIES: No edema,clubbing, or cyanosis. VITAL SIGNS: Temperature 98.5, pulse 97, respirations 18, O2 sats 97% on room air, blood pressure 130/73. LABORATORY DATA: Hemoglobin is stable at 9.2, hematocrit 28, platelet count 215. LABORATORY DATA: Yesterday showed sodium 138, potassium 3.5, chloride 102, bicarb 24, BUN 17, creatinine 0.85, GFR 86. Urinalysis showed 7 to 10 red cells but no white cells. ASSESSMENT: 1. Resolving cerebrovascular accident with decreased confusion, but persistent and with improving right-sided weakness. 2. Stable atrial fibrillation with chronic anemia, on anticoagulation with no evidence of gastrointestinal bleeding. Appears to be stabilized. 3. Parkinson disease with mild dementia, stable. Decreased agitation at night. PLAN: 1. Continue PT and OT. 2. Continue to monitor closely agitation. 3. Continue to monitor fall risk. 4. Review labs and therapy notes. 5. Continue Parkinson's medicines. Job ID: [id number]
[2019-08-22] MEDS: Atorvastatin Calcium 40 MG TAB PO SCH (21:24)
[2019-08-22] MEDS: Finasteride 5 MG TAB PO SCH (21:25)
[2019-08-23] MEDS: Lidocaine Patch Removal 1 EACH TOP SCH ×2 (00:20→20:03)
[2019-08-23 06:37] VITALS: BMI 25.0
[2019-08-23] MEDS: Cyanocobalamin (Vitamin B-12) 1,000 MCG TAB PO SCH (09:20)
[2019-08-23] MEDS: Furosemide 40 MG TAB PO SCH (09:21)
[2019-08-23] MEDS: Apixaban 5 MG TAB PO SCH ×2 (09:21→20:02)
[2019-08-23] MEDS: Lidocaine 5% Patch TD SCH (09:22)
[2019-08-23] MEDS: Pramipexole Di-HCl 0.25 MG TAB PO SCH ×2 (09:22→20:03)
[2019-08-23] MEDS: Carbidopa/Levodopa CR 50-200 mg Tablet PO SCH ×2 (09:22→20:03)
--- NOTE | 2019-08-23 20:01 | PRG ---
DATE OF SERVICE: 08/23/2019 SUBJECTIVE: Mr. Tubbs is a well-developed, well-nourished, very pleasant, 84-year-old, white male, who had a stroke and was life flighted to [facility] in [place]. He was given tPA and then had revascularization for the 3 mm stent. He was stabilized and now was transferred back to [facility] for physical therapy, occupational therapy, and speech therapy. The patient just said that he has appointment on Friday in [place] with one of his doctors. I told him that he needs to tell the nurse or his needs to tell the nurse to get that accomplished or see if it can be postponed. OBJECTIVE: VITAL SIGNS: Today reveal blood pressure 106/58, pulse 72, respirations 18, O2 saturation 99% on room air, T-max 97.2. GENERAL: This is a well-developed, well-nourished, very pleasant, slightly obese, white male with some right-sided weakness. HEENT: Reveal normocephalic and nontraumatic cranium. Pupils are equally round and reactive. Extraocular movements are intact. Nose and throat are slightly dry. NECK: Supple without masses, nodes, or bruits. CHEST: Clear to auscultation. No rales, rhonchi, wheezes, or cough is noted. HEART: Reveals irregularly irregular rate and rhythm. ABDOMEN: Soft and nontender without organomegaly. Normal bowel sounds noted in all 4 quadrants. No rebound or guarding is noted. : Deferred. EXTREMITIES: Reveal no clubbing, cyanosis, or edema. ASSESSMENT: 1. Resolving cerebrovascular accident with decreased confusion, but still persistent. 2. Atrial fibrillation. 3. Chronic anemia. 4. Anticoagulation. 5. Parkinson disease with mild dementia. 6. Continuous agitation at night, which is improving. 7. Coronary artery disease. 8. Benign prostatic hypertrophy. 9. Generalized weakness. PLAN: 1. Continue present medications. 2. Continue to monitor the patient's blood pressure closely. 3. Monitor the patient's atrial fibrillation for RVR. 4. Continue present Parkinson medications. 5. Monitor the patient's anemia. 6. Monitor the patient for urinary retention. 7. Decubitus precautions. 8. Stress ulcer prophylaxis. 9. DVT prophylaxis with apixaban. 10. Continue PT and OT. 11. Continue speech therapy. Job ID: [id number]
[2019-08-23] MEDS: Finasteride 5 MG TAB PO SCH (20:03)
[2019-08-23] MEDS: Atorvastatin Calcium 40 MG TAB PO SCH (20:03)
[2019-08-24 05:45] LABS: Hemoglobin 9.4 g/dL (14.0-18.0); Platelet Count 237 thou/uL (130-400)
[2019-08-24] MEDS: Lidocaine 5% Patch TD SCH (09:29)
[2019-08-24] MEDS: Apixaban 5 MG TAB PO SCH ×2 (09:29→21:12)
[2019-08-24] MEDS: Carbidopa/Levodopa CR 50-200 mg Tablet PO SCH ×2 (09:30→21:12)
[2019-08-24] MEDS: Furosemide 40 MG TAB PO SCH (09:30)
[2019-08-24] MEDS: Cyanocobalamin (Vitamin B-12) 1,000 MCG TAB PO SCH (09:31)
[2019-08-24] MEDS: Pramipexole Di-HCl 0.25 MG TAB PO SCH ×2 (09:32→21:12)
--- NOTE | 2019-08-24 11:11 | PRG ---
DATE OF SERVICE: 08/24/2019 SUBJECTIVE: Mr. Opal Tubbs is a well-developed, well-nourished, very pleasant, 84-year-old white male, who was life flighted to [facility] secondary to his CVA stroke. He is given tPA and had a revascularization done with a 3 mm stent. He is stabilized, now transferred back to [facility] for physical therapy, occupational therapy, and speech therapy. The patient continues to progress very slowly, but he has a very poor memory. Apparently, the stroke affected that also. [facility] did call, and states his appointment is next Friday to see the neurologist. His apparently may have 2 appointments that day, so we will have to get that delineated. OBJECTIVE: VITAL SIGNS: Today reveal blood pressure is not available yet this morning. His blood pressure yesterday at noon was 153/65 and last night 162/67. Respirations 18, O2 saturation 99% on room air, T-max 96.6. GENERAL: On physical exam, this is a well-developed, well-nourished, pleasant, 84-year-old white male, status post CVA. HEENT: Reveals normocephalic and nontraumatic cranium. Pupils are equally round and reactive. Extraocular movements are intact. Nose and throat are slightly dry. NECK: Supple without masses, nodes, or bruits. CHEST: Clear to auscultation. No rales, rhonchi, wheezes, or cough is noted. HEART: Reveals irregularly irregular rate and rhythm. ABDOMEN: Soft, nontender without organomegaly. Normal bowel sounds are noted in all 4 quadrants. No rebound or guarding is noted. : Deferred. ASSESSMENT: 1. Resolving cerebrovascular accident with decreased confusion, but still persistent. 2. Generalized weakness. 3. Atrial fibrillation. 4. Chronic anemia. 5. Anticoagulation. 6. Parkinson disease with mild dementia. 7. Continued agitation at night, which does improve. 8. Coronary artery disease. 9. BPH. 10. Generalized weakness. PLAN: 1. Continue present medications. 2. Continue to monitor the patient's blood pressure closely. 3. Monitor the patient for atrial fibrillation and for RVR. 4. Continue Parkinson's medication. 5. Monitor the patient's anemia. 6. Monitor the patient for urinary retention. 7. Decubitus precautions. 8. Stress ulcer prophylaxis. 9. DVT prophylaxis with apixaban. 10. Continue PT and OT. 11. Continue speech therapy. Job ID: [id number]
[2019-08-24] MEDS ORDERED: Triamcinolone 0.1% Cream 15 GM TUBE TOP PRN (14:23)
[2019-08-24] MEDS: Atorvastatin Calcium 40 MG TAB PO SCH (21:12)
[2019-08-24] MEDS: Finasteride 5 MG TAB PO SCH (21:12)
[2019-08-25] MEDS: Lidocaine Patch Removal 1 EACH TOP SCH (01:12)
[2019-08-25 08:38] VITALS: TEMP 98.2
[2019-08-25] MEDS: Pramipexole Di-HCl 0.25 MG TAB PO SCH (09:18)
[2019-08-25] MEDS: Cyanocobalamin (Vitamin B-12) 1,000 MCG TAB PO SCH (09:18)
[2019-08-25] MEDS: Carbidopa/Levodopa CR 50-200 mg Tablet PO SCH (09:18)
[2019-08-25] MEDS: Furosemide 40 MG TAB PO SCH (09:18)
[2019-08-25] MEDS: Apixaban 5 MG TAB PO SCH (09:18)
[2019-08-25] MEDS: Lidocaine 5% Patch TD SCH (09:19)
[2019-08-25 10:04] VITALS: BP 123/61
--- NOTE | 2019-08-25 19:26 | DIS ---
DATE OF ADMISSION: 08/18/2019 DATE OF DISCHARGE: 08/25/2019 HOSPITAL COURSE: Mr. Tubbs is a well-developed, well-nourished 84-year-old white male, who was life flighted to [place] secondary to his CVA stroke. He was given tPA and had revascularization done with 3 mm stent. In [place] at [facility], he was stabilized and now transferred back to [facility] for physical therapy and occupational therapy. Yesterday, in the physical therapy and occupational therapy meeting, the decision was that the patient is reached maximum medical benefit and he is ready for discharge to home. His requested they go home today. DISCHARGE MEDICATIONS: Include the followin. Apixaban 5 mg b.i.d. 2. Atorvastatin 40 mg daily. 3. Sinemet CR 50/200 b.i.d. 4. Vitamin B12 of 1000 mcg daily. 5. Finasteride 1 mg each day at bedtime. 6. Lasix 40 mg each morning. 7. Pantoprazole 40 mg, where the patient can take two of the 20 mg pills daily. 8. Mirapex 1 mg b.i.d. PHYSICAL EXAMINATION: VITAL SIGNS: This morning reveal blood pressure 111/56, pulse 74, respirations 18, O2 saturation 96% on room air, and T-max 98.2. GENERAL: This is a well-developed, well-nourished pleasant white male, status post CVA. HEENT: Reveals normocephalic and nontraumatic cranium. Pupils are equally round and reactive. Extraocular movements are intact. Nose and throat are slightly dry. NECK: Supple without masses, nodes, or bruits. CHEST: Clear to auscultation. No rales, rhonchi, or wheezes are heard. HEART: Reveals an irregularly irregular rate and rhythm. No murmurs, gallops, or rubs are noted. ABDOMEN: Slightly obese, soft, and nontender without organomegaly. Normal bowel sounds are noted in all 4 quadrants. No rebound or guarding is noted. : Deferred. EXTREMITIES: Reveal no clubbing, cyanosis, or edema. The patient continues with generalized weakness. NEUROLOGIC: The patient has some cognitive deficits and poor memory, which is different from his usual. LABORATORY DATA: Last laboratory revealed his hemoglobin yesterday was , hematocrit 31.2, platelet count 237,000. The patient's creatinine yesterday was 0.83. GFR was 88. ASSESSMENT: 1. Resolving cerebrovascular accident with decrease in confusion, but still some persistent cognitive deficits. 2. Generalized weakness. 3. Atrial fibrillation. 4. Chronic anemia, slowly improving. 5. Anticoagulation with Eliquis. 6. Parkinson disease with mild dementia. 7. Coronary artery disease. 8. Benign prostatic hyperplasia. 9. Generalized weakness. PLAN: 1. Continue present medications as noted above. 2. Continue to monitor the patient's blood pressure closely. 3. Monitor the patient's atrial fibrillation for RVR. 4. Continue Parkinson's medication. 5. Monitor the patient's anemia. 6. Monitor the patient's urinary tract and retention. 7. Decubitus precautions. 8. Stress ulcer prophylaxis. 9. DVT prophylaxis with apixaban. 10. Continue outpatient physical therapy. 11. Home health. Job ID: [id number]
[2019-08-25] MEDS ORDERED: FINASTERIDE 1 MG PO SCH (21:00)
== END 2019-08-25 15:40 | disposition home health service (06) | DRG 57 ==
LOC: NAV ACUTE 18:15
PROVIDERS: ADMIT Family Medicine; ATTEND Family Medicine
DX: I69.351 Hemiplegia and hemiparesis following cerebral infarction affecting right dominant side (principal); I48.91 Unspecified atrial fibrillation; D64.9 Anemia, unspecified; G20 Parkinson's disease; F02.80 Dementia in other diseases classified elsewhere, unspecified severity, without behavioral disturbance, psychotic disturbance, mood disturbance, and anxiety; I25.10 Atherosclerotic heart disease of native coronary artery without angina pectoris; N40.0 Benign prostatic hyperplasia without lower urinary tract symptoms; Z95.5 Presence of coronary angioplasty implant and graft; E78.5 Hyperlipidemia, unspecified; E55.9 Vitamin D deficiency, unspecified; Z79.01 Long term (current) use of anticoagulants
CPT/HCPCS: 36415; 80048; 80053; 80061; 81001; 82274; 82565; 85014; 85018; 85025; 85049

== ENCOUNTER → 2019-11-26 | Emergency (ER) | payer MEDICARE, OTHER ==
[~2019-11-26] MED LIST: Bacitracin 1 PK ONE; Iopamidol 370 76% 100 ML VIAL ONE; Ondansetron PF 4 MG/2 ML Vial ONE
[2019-11-26 22:53] LABS: #Lymphocytes 1.5 thou/uL (1.20-3.40); #Monocytes 0.5 thou/uL (0.11-0.59); %Basophils 0.2 % (0.0-1.0); %Eosinophils 0.4 % (0.0-10.0); %Lymphocytes 11.6 % (21.0-51.0); %Monocytes 3.8 % (0.0-10.0); Hemoglobin 11.1 g/dL (14.0-18.0); Hypochromia SLIGHT = 6-15 cells (100X) (0-5/hpf); MDiff Complete? YES; Mean Corpuscular HGB CONC 28.6 g/dL (32.0-36.0); Mean Corpuscular Hemoglobin 24.2 pg (27.0-31.0); Mean Corpuscular Volume 84.8 fL (78.0-98.0); Mean Platelet Volume 9.1 fL (7.4-10.4); Ovalocytes SLIGHT = 2-5 cells (100X) (0-1/hpf); Platelet Count 216 thou/uL (130-400); Platelet Morphology Comment Appears Adequate; Poikilocytosis SLIGHT = 6-15 cells (100X) (0-5/hpf); RBC Distribution Width 17.2 % (11.5-14.5); Red Blood Cell (RBC) Count 4.56 mill/uL (4.70-6.10); White Blood Cell (WBC) Count 13.1 thou/uL (4.8-10.8)
[2019-11-26 22:57] LABS: ALT (SGPT) 11 U/L (8-55); AST (SGOT) 17 U/L (5-34); Albumin 4.4 g/dL (3.4-4.8); Alkaline Phosphatase 89 U/L (40-110); Anion Gap 15 mmol/L (10-20); BUN (Urea Nitrogen) 17 mg/dL (8.4-25.7); Bilirubin, Total 0.4 mg/dL (0.2-1.2); Calc. Creatinine Clearance 0 mL/min (70-130); Calcium 9.7 mg/dL (7.8-10.44); Carbon Dioxide 27 mmol/L (23-31); Chloride 96 mmol/L (98-107); Estimated GFR-MDRD 74; Globulin 3.1 g/dL (2.4-3.5); Glucose 111 mg/dL (83-110); Lipase 16 U/L (8-78); Protein, Total 7.5 g/dL (5.8-8.1); Sodium 134 mmol/L (136-145)
[2019-11-26 23:00] LABS: Bilirubin Negative (Negative); Blood, Urine Trace (Negative); Clarity Clear (Clear); Glucose, Urine (Dipstick) Negative (Negative); Leukocyte Negative (Negative); Nitrite Negative (Negative); Protein, Urine (Dipstick) Negative (Neg-Trace); Urobilinogen 0.2 mg/dL (Less than 2)
[2019-11-26 23:03] LABS: Bacteria/HPF None Seen HPF (None Seen); RBC/HPF 0-3 HPF (0-3); Squamous Epithelial None Seen HPF (0-3); WBC/HPF None Seen HPF (0-3)
--- NOTE | 2019-11-27 06:44 | CT ---
CT ABDOMEN AND PELVIS WITH IV CONTRAST: INDICATIONS: An 84-year-old male with a history of constipation for the past three months, increasing abdominal pa in and discomfort. History of vomiting. FINDINGS: There is prominent enteric contrast distention of the distal esophagus, a large hiatal hernia and the stomach. There is mild cardiomegaly. There is mild subsegmental atelectasis involving both lower lobes. No focal hepatic lesion is evident. The gallbladder is decompressed. An 8 mm right adrenal nodule is stable appearing. The left adrenal g land is normal appearing. No hydronephrosis is evident. The spleen is normal appearing. There are mild vascular calcifications involving the abdominal aorta. No enlarged lymph nodes evident . There are numerous dilated loops of small bowel with transition to a normal caliber in the lower midl ine abdomen, just to the left of midline, on image 49 of series 2 and on image 86 of the coronal seri es. There is a fat-containing umbilical hernia. There is a left inguinal hernia containing some fluid. The prostate is enlarged. The bladder is decompressed. The rectum and perirectal soft tissues are unr emarkable appearing. There is scattered degenerative and osteoarthritic change. No definite acute osseous abnormality is e vident. IMPRESSION: 1. Moderate partial-grade small bowel obstruction with a transition zone seen within the lower left m idline of the abdomen. Surgical consultation is recommended. 2. Large hiatal hernia. 3. Stable small right adrenal nodule. 4. Prostate enlargement. POS: BH
== END ==
LOC: NAV ERS 21:39
DX: K56.600 Partial intestinal obstruction, unspecified as to cause (principal); R11.2 Nausea with vomiting, unspecified; D64.9 Anemia, unspecified; E78.5 Hyperlipidemia, unspecified; E78.00 Pure hypercholesterolemia, unspecified; M19.90 Unspecified osteoarthritis, unspecified site; G25.81 Restless legs syndrome; I10 Essential (primary) hypertension; Z86.73 Personal history of transient ischemic attack (TIA), and cerebral infarction without residual deficits; Z87.891 Personal history of nicotine dependence; Z79.01 Long term (current) use of anticoagulants; Z79.899 Other long term (current) drug therapy
CPT/HCPCS: 51701; 74177; 80053; 81003; 81015; 82274; 83690; 84484; 85025; 93005; 96374; J2405; Q9967

== ENCOUNTER 2021-01-25 13:27 | Emergency (ER) | payer MEDICARE, OTHER ==
[2021-01-25] MEDS ORDERED: Bacitracin 1 PK ONE (13:51)
[2021-01-25] MEDS ORDERED: Lidocaine 1% w/Epinephrine 1:100K 20 ML VIAL ONE (13:51)
[2021-01-25] MEDS ORDERED: Boostrix 0.5 ML (Tdap) VIAL ONE (13:57)
[2021-01-25] MEDS ORDERED: Acetaminophen/Codeine 30-300mg Tablet ONE (14:55)
[2021-01-25 15:31] LABS: #Basophils 0.1 thou/uL (0.0-0.2); #Eosinphils 0.1 thou/uL (0.0-0.7); #Lymphocytes 0.9 thou/uL (1.20-3.40); #Monocytes 0.8 thou/uL (0.11-0.59); #Neutrophils 7.8 thou/uL (1.40-6.50); %Basophils 0.6 % (0.0-1.0); %Eosinophils 0.6 % (0.0-10.0); %Lymphocytes 9.8 % (21.0-51.0); %Monocytes 7.9 % (0.0-10.0); %Neutrophils 81.2 % (42.0-75.0); Hemoglobin 10.5 g/dL (14.0-18.0); Mean Corpuscular HGB CONC 30.6 g/dL (32.0-36.0); Mean Corpuscular Hemoglobin 28.7 pg (27.0-31.0); Mean Corpuscular Volume 93.9 fL (78.0-98.0); Mean Platelet Volume 9.2 fL (7.4-10.4); Platelet Count 235 thou/uL (130-400); RBC Distribution Width 13.1 % (11.5-14.5); Red Blood Cell (RBC) Count 3.65 mill/uL (4.70-6.10); White Blood Cell (WBC) Count 9.6 thou/uL (4.8-10.8)
[2021-01-25 15:43] LABS: Anion Gap 12 mmol/L (10-20); BUN (Urea Nitrogen) 13 mg/dL (8.4-25.7); Calc. Creatinine Clearance 0 mL/min (70-130); Calcium 8.8 mg/dL (7.8-10.44); Carbon Dioxide 26 mmol/L (23-31); Chloride 104 mmol/L (98-107); Glucose 123 mg/dL (83-110); Potassium 4.2 mmol/L (3.5-5.1); Sodium 138 mmol/L (136-145)
[2021-01-25] MEDS ORDERED: Cephalexin 250 MG CAP ONE (15:54)
== END 2021-01-25 16:49 | disposition home or self-care (01) ==
LOC: NAV ERS 13:27
DX: S51.011A Laceration without foreign body of right elbow, initial encounter (principal); S51.012A Laceration without foreign body of left elbow, initial encounter; S20.211A Contusion of right front wall of thorax, initial encounter; E78.5 Hyperlipidemia, unspecified; E78.00 Pure hypercholesterolemia, unspecified; I11.9 Hypertensive heart disease without heart failure; Z86.73 Personal history of transient ischemic attack (TIA), and cerebral infarction without residual deficits; Z87.891 Personal history of nicotine dependence; Z79.02 Long term (current) use of antithrombotics/antiplatelets; Z79.899 Other long term (current) drug therapy
CPT/HCPCS: 12002; 80048; 85025; 90471; 90715; 94799

== ENCOUNTER 2021-02-17 15:27 | Emergency (ER) | payer MEDICARE, OTHER ==
[~2021-02-17 15:27] MED LIST changes: -Bacitracin 1 PK ONE; -Ondansetron PF 4 MG/2 ML Vial ONE
[2021-02-17 16:29] LABS: Anion Gap 13 mmol/L (10-20); BUN (Urea Nitrogen) 19 mg/dL (8.4-25.7); Carbon Dioxide 28 mmol/L (23-31); Chloride 105 mmol/L (98-107); Potassium 3.4 mmol/L (3.5-5.1); Sodium 143 mmol/L (136-145)
[2021-02-17 16:30] LABS: ALT (SGPT) 18 U/L (8-55); AST (SGOT) 56 U/L (5-34); Albumin 3.7 g/dL (3.4-4.8); Alkaline Phosphatase 132 U/L (40-110); Bilirubin, Total 1.7 mg/dL (0.2-1.2); Calc. Creatinine Clearance 0 mL/min (70-130); Calcium 8.5 mg/dL (7.8-10.44); Globulin 2.4 g/dL (2.4-3.5); Glucose 93 mg/dL (83-110); Lipase 2046 U/L (8-78); Protein, Total 6.1 g/dL (5.8-8.1)
[2021-02-17] MEDS ORDERED: Fentanyl 100 MCG/2 ML VIAL ONE ×3 (16:43→18:22)
[2021-02-17 17:07] LABS: Hemoglobin 11.4 g/dL (14.0-18.0); Mean Corpuscular HGB CONC 29.7 g/dL (32.0-36.0); Mean Corpuscular Hemoglobin 28.9 pg (27.0-31.0); Mean Corpuscular Volume 97.4 fL (78.0-98.0); Platelet Count 254 thou/uL (130-400); RBC Distribution Width 15.2 % (11.5-14.5); Red Blood Cell (RBC) Count 3.93 mill/uL (4.70-6.10); White Blood Cell (WBC) Count 7.5 thou/uL (4.8-10.8)
[2021-02-17 17:13] LABS: Lymphocytes 3 % (21-51); Monocytes 1 % (0-10); Neutrophil 96 % (42-75); Platelet Morphology Comment ADEQUATE
[2021-02-17] MEDS ORDERED: Sodium Chloride 0.9% 1,000 ML ONE (17:19)
[2021-02-17 17:20] LABS: MDiff Complete? YES
[2021-02-17] MEDS ORDERED: Piperacillin/Tazobactam 4.5 GM VIAL ONE (18:22)
[2021-02-17] MEDS ORDERED: Sodium Chloride 0.9% 100 ML ONE (18:23)
[2021-02-17 19:39] LABS: SARS-CoV-2 NAA Rapid Test Not Detected (NotDetected)
== END 2021-02-17 19:21 | disposition short-term general hospital (02) ==
LOC: NAV ERS 15:27
DX: K81.0 Acute cholecystitis (principal); K85.90 Acute pancreatitis without necrosis or infection, unspecified; Z20.822 Contact with and (suspected) exposure to COVID-19; E78.5 Hyperlipidemia, unspecified; I10 Essential (primary) hypertension; Z87.891 Personal history of nicotine dependence; Z79.899 Other long term (current) drug therapy
CPT/HCPCS: 74177; 80053; 83690; 85025; 96365; 96375; 96376; 99285; U0002; J2543; J3010; J3490; J7050; Q9967